=== PATIENT | female | born 1960 | race African-American/Black ===

== ENCOUNTER 2018-05-23 17:28 | Inpatient (IN) | payer MEDICAID, OTHER ==
[~2018-05-23] VITALS: Ht 175.3 cm; Wt 67.3 kg
[~2018-05-23 17:28] MED LIST: ALBUPOW26; AML5T PO; BACL10TA OR; CARI250T; ENAL20TA70; FURO40TA4 PO; HYDR-1421; POTA20TA53 OR
[2018-05-23 19:18] LABS: Albumin 2.6 g/dL (3.4-5.0); Calcium 9.6 mg/dL (8.5-10.1)
[2018-05-23 19:21] LABS: BUN/Creatinine Ratio 18.2; Bilirubin, Total 0.5 mg/dL (0.2-1.0); Total Protein 6.8 g/dL (6.4-8.2)
[2018-05-23 19:30] LABS: Eosinophils # (auto) 0 uL
[2018-05-23 19:33] LABS: Basophils # (auto) 0.1 uL; Basophils % (auto) 1.3 % (0.0-2.0); Eosinophils % (auto) 0.4 % (0.0-7.0); Hematocrit 47.8 % (36.0-46.0); Lymphocytes # (auto) 2.2 uL; Lymphocytes % (auto) 29.3 % (10.0-50.0); Mean Corpuscular Hemoglobin 34.4 pg (28.0-32.0); Mean Corpuscular Hgb Conc. 33.5 g/dL (32.0-36.0); Mean Corpuscular Volume 102.6 fL (80.0-100.0); Monocytes # (auto) 0.6 uL; Monocytes % (auto) 7.9 % (0.0-12.0); Neutrophils # (auto) 4.5 uL; Neutrophils % (auto) 61.1 % (37.0-80.0); Nucleated Red Blood Cells % 0.2 %; Platelet Count (auto) 214 10^3/uL (140-450); Red Blood Cells 4.66 10^6/uL (4.0-5.20); Red Cell Distribution Width 14.3 % (11.8-14.3); White Blood Cell 7.4 10^3/uL (4.4-10.8)
[2018-05-23 20:38] LABS: Potassium 2.8 mmol/L (3.5-5.1)
[2018-05-23] MEDS ORDERED: POTASSIUM CHL 20 Meq TABLET PO ONE (21:00)
[2018-05-24] MEDS ORDERED: SODIUM CHLORIDE 0.9% 1,000 ML IV ONE ×2 (07:13)
[2018-05-24] MEDS ORDERED: ONDANSETRON HCL 4 MG/2 ML VIAL IV ONE (07:15)
[2018-05-24] MEDS ORDERED: PIPERACILLIN-TAZOB 3.375GM 100 ML IV ONE (12:15)
[2018-05-24] MEDS ORDERED: metroNIDAZOLE 500MG/100ML 100 ML IV ONE (12:15)
[2018-05-24] MEDS ORDERED: PANTOPRAZOLE 40 MG/10 ML VIAL IV ONE (12:15)
[2018-05-24 13:13] LABS: Alcohol, Urine < 3.0 mg/dL (0-5); Amphetamine Screen, Urine NEGATIVE (NEGATIVE); Barbiturate Scree,Urine NEGATIVE (NEGATIVE); Benzodiazephine Screen, Urine NEGATIVE (NEGATIVE); Cannabinoid Screen, Urine POSITIVE (NEGATIVE); Cocaine Screen, Urine NEGATIVE (NEGATIVE); Opiate Scree,Urine POSITIVE (NEGATIVE); Phencyclidine Screen, Urine NEGATIVE (NEGATIVE)
[2018-05-24] MEDS ORDERED: ONDANSETRON HCL 4 MG/2 ML VIAL IV PRN (13:30)
[2018-05-24] MEDS ORDERED: NITROGLYCERIN 0.4 MG SL TAB SL PRN (13:30)
[2018-05-24] MEDS ORDERED: MORPHINE SULF INJ 2 MG/ML SYRINGE 1ML IV PRN (13:30)
[2018-05-24 13:46] LABS: Urine Bacteria NONE SEEN /hpf (None Seen); Urine Blood Negative /uL (Negative); Urine Mucus MODERATE (None Seen); Urine Specific Gravity 1.029 (1.001-1.035); Urine WBC 16 /hpf (0 - 5)
[2018-05-24] MEDS: METOCLOPRAMIDE HCL 5MG/ml INJ 2ml VIAL IV SCH ×2 (13:59→21:30)
[2018-05-24] MEDS: LACTULOSE 20Gm/30ML SOLN PO SCH ×3 (13:59→21:30)
[2018-05-24 14:34] LABS: Eosinophils # (auto) 0 uL; Eosinophils % (auto) 0.2 % (0.0-7.0); Neutrophils # (auto) 6.5 uL
[2018-05-24 14:35] LABS: Basophils # (auto) 0.1 uL; Basophils % (auto) 0.5 % (0.0-2.0); Hematocrit 47.4 % (36.0-46.0); Hemoglobin 15.9 g/dL (12.2-16.2); Lymphocytes # (auto) 2.5 uL; Lymphocytes % (auto) 24.6 % (10.0-50.0); Mean Corpuscular Hemoglobin 34.2 pg (28.0-32.0); Mean Corpuscular Hgb Conc. 33.5 g/dL (32.0-36.0); Mean Corpuscular Volume 102.2 fL (80.0-100.0); Monocytes % (auto) 9.5 % (0.0-12.0); Neutrophils % (auto) 65.2 % (37.0-80.0); Platelet Count (auto) 218 10^3/uL (140-450); Red Blood Cells 4.64 10^6/uL (4.0-5.20); Red Cell Distribution Width 14.5 % (11.8-14.3)
[2018-05-24 14:48] LABS: INR 0.95 (0.9-1.15); Partial Thromboplastin Time 29.5 sec (23.78-33.04); Prothrombin Time 10.2 sec (9.27-12.13)
[2018-05-24 14:58] LABS: Alanine Aminotransferase 14 U/L (13-56); Albumin 2.6 g/dL (3.4-5.0); Anion Gap 3 (5-15); Aspartate Aminotransferase 15 U/L (15-37); BUN/Creatinine Ratio 18.9; Blood Urea Nitrogen 7 mg/dL (7-18); Calcium 8.9 mg/dL (8.5-10.1); Carbon Dioxide 35 mmol/L (21-32); Chloride 101 mmol/L (98-107); GFR African American 231 mL/min; GFR Non-African American 191 mL/min; Glucose 103 mg/dL (74-106); Potassium 3.1 mmol/L (3.5-5.1); Sodium 139 mmol/L (136-145)
[2018-05-24 15:03] LABS: Alkaline Phosphatase 85 U/L (45-117); Bilirubin, Total 0.6 mg/dL (0.2-1.0); Total Protein 6.7 g/dL (6.4-8.2)
--- NOTE | 2018-05-24 15:20 | NUR ---
MS admit from ER SHIRLENE DIOP admitted to tele/MS after SBAR received. Patient oriented to Brina Horne, primary RN, unit, room, bed, and unit policies regarding patient care and visiting hours. Patient weighed by bedscale and encouraged to call if they need something. Patient is awake, alert and oriented X4. No signs or symptoms of pain, discomfort or shortness of breath. IV to left forearm, 20 gauge, patent and saline locked. All questions and concerns addressed, patient verbalized understanding. Bed locked, in lowest position, call light within reach, will continue to monitor Q 1 hour and PRN.
[2018-05-24] MEDS: MULTIPLE VITAMIN 10 ML, MAGNESIUM SULF SDV 50% 8 MEQ in D5W/SOD CHL 0.45% 1,000 ML IV SCH (16:32)
[2018-05-24 16:42] VITALS: BP 138/93
[2018-05-24] MEDS ORDERED: METH-562 PO (16:42)
[2018-05-24] MEDS ORDERED: POTA10TA51 PO (16:42)
[2018-05-24] MEDS ORDERED: METO25TA62 PO (16:42)
[2018-05-24] MEDS ORDERED: PNEUMOCOCCAL VACC POLYS 25 MCG/0.5 ML VIAL IM ONE (18:45)
[2018-05-24] MEDS ORDERED: INFLUENZA QUAD 2018-2019 0.5 ML SYRG IM ONE (18:45)
--- NOTE | 2018-05-24 19:00 | NUR ---
Opening Shift Note Assumed care of patient, awake and alert. No S/S of distress/SOB or pain. Instructed on POC and to call for assist PRN, will continue to monitor for changes Q1hr and PRN.
--- NOTE | 2018-05-24 19:09 | NUR ---
Care endorsed to ANSELMO Wang, night nurse.
[2018-05-24] MEDS: MORPHINE SULF INJ 2 MG/ML SYRINGE 1ML IV PRN ×2 (20:17→20:20)
--- NOTE | 2018-05-24 20:22 | NUR ---
AT BEDSIDE THE PATIENT REQUEST PAIN MEDICATION BUT REFUSED THE MORPHINE. INSTEAD THE PATIENT WAS GIVEN NORCO. THE MORPHINE WAS WASTED AND WITNESSED BY ROMERO BRIONES.
[2018-05-24] MEDS: HYDROcodone-ACET 7.5/325MG TAB PO PRN (20:25)
[2018-05-24] MEDS: DOCUSATE SOD 100 MG CAP PO SCH (21:30)
[2018-05-24 22:00] VITALS: BP 141/96
[2018-05-25] MEDS: LACTULOSE 20Gm/30ML SOLN PO SCH ×4 (02:00→18:00)
[2018-05-25 03:32] VITALS: BP 141/96
[2018-05-25 04:41] VITALS: BP 148/90
[2018-05-25] MEDS: METOCLOPRAMIDE HCL 5MG/ml INJ 2ml VIAL IV SCH ×3 (06:18→22:00)
--- NOTE | 2018-05-25 06:46 | NUR ---
THE PATIENT HAS A TOTAL OF 7 BOWEL MOVEMENTS THROUGHOUT THE SHIFT. THE STOOL APPEARED TO BE DARK BROWN WITH LOOSE WATERY STOOL.
--- NOTE | 2018-05-25 07:30 | NUR ---
OPENING SHIFT NOTE: Received report from [facility] RNs, Kathy. Assumed care of patient. Patient is resting quietly in bed. No signs/symptoms of pain. Bed in lowest position, rails x2 up and call light within reach. Updated board on plan of care. Will continue to monitor.
[2018-05-25 09:00] VITALS: BP 140/89
--- NOTE | 2018-05-25 09:00 | NUR ---
COMMODE: 2 person assist to get patient on commode. Patient had a loose bowel movement. Patient requesting to hold next dose of lactulose.
[2018-05-25] MEDS: DOCUSATE SOD 100 MG CAP PO SCH ×2 (10:00→22:00)
--- NOTE | 2018-05-25 11:35 | NUR ---
BP: BP 165/118. Patient with home medications that haven't been continued. Paged Dr Little and left message regarding continuation of home medications.
[2018-05-25] MEDS ORDERED: POTASSIUM CHLORIDE 40 MEQ, LIDOCAINE 1% (LOCAL ANESTH.) 4 ML in SODIUM CHL 0.9% 100 ML IV ONE (12:30)
--- NOTE | 2018-05-25 12:31 | NUR ---
MD: Dr Little to see patient at bedside. Orders received.
[2018-05-25] MEDS ORDERED: METOPROLOL SUCCINATE XL 50 MG TAB PO ONE (12:45)
[2018-05-25 13:00] VITALS: BP 163/115
[2018-05-25] MEDS: FUROSEMIDE 40 MG TAB PO SCH (13:00)
[2018-05-25] MEDS ORDERED: POTASSIUM CHLORIDE 8 MEQ TAB PO SCH (13:00)
--- NOTE | 2018-05-25 13:06 | NUR ---
GI CONSULT: Dr Mejia is out of town until 05/30/18. Dr Dm Ignacio is covering. Consult placed to Dr Dm Ignacio.
--- NOTE | 2018-05-25 13:30 | NUR ---
MEDICATIONS: Patient refusing to take metoprolol. Requesting for pain medication. RN reinforced Dr Little's request for patient to eat and hold off on pain medications due to hepatic function and constipation.
[2018-05-25] MEDS: MULTIPLE VITAMIN 10 ML, MAGNESIUM SULF SDV 50% 8 MEQ in D5W/SOD CHL 0.45% 1,000 ML IV SCH (13:37)
--- NOTE | 2018-05-25 14:00 | NUR ---
IV: Call from Urvashi SWANSON. IV to left AC leaking. Held banana bag and postassium rider. Will attempt a new IV.
[2018-05-25] MEDS: ALBUTEROL SULF 2.5 MG/0.5ML(0.5%) NEB SOLN NEB PRN ×2 (14:26→22:17)
--- NOTE | 2018-05-25 14:30 | NUR ---
Patient moved to room 277B closer to nurses station per Dr Little's request due to likely garcía of patient developing DTs from alcohol withdrawals.
--- NOTE | 2018-05-25 16:30 | NUR ---
IV: Attempted to start new IV to left forearm with no success. Patient refusing to allow RN to try again. RN to get another nurse to attempt.
[2018-05-25 17:00] VITALS: BP 186/106
--- NOTE | 2018-05-25 17:34 | NUR ---
IV: JASWINDER Barrow attempted x2 to start IV. Patient complaining about where nurses are trying to place IV. After 2nd IV blew, patient asked for nurse to give her sometime to rest before additional attempt.
--- NOTE | 2018-05-25 19:03 | NUR ---
CLOSING SHIFT NOTE: Report given to NOC RNs, Kathy. Endorsed care of patient. Patient still with no IV access.
--- NOTE | 2018-05-25 19:30 | NUR ---
Unsuccessful attempt for IV insertion on left FA. Patient refused to allow another attempt. Will inform charge nurse.
--- NOTE | 2018-05-25 19:35 | NUR ---
Opening Shift Note Assumed care of patient, awake and alert. The patient has family at the bedside. No S/S of distress/SOB or pain. Instructed on POC and to call for assist PRN, will continue to monitor for changes Q1hr and PRN.
[2018-05-25 21:52] VITALS: BP 147/84
--- NOTE | 2018-05-25 22:00 | NUR ---
BROUGHT IN CHARGE NURSE TO ATTEMPT IV. BUT PATIENT BECAME AGGRESSIVE USING INAPPROPRIATE LANGUAGE AND REFUSED TO HAVE THE IV. WILL RETRY AT A LATER TIME.
[2018-05-26 02:00] VITALS: BP 147/106
--- NOTE | 2018-05-26 03:45 | NUR ---
ATTEMPTED TO PLACE ANOTHER IV IN THE PATIENT'S LEFT ARM. ATTEMPT WAS UNSUCCESSFUL. PATIENT REFUSED ANOTHER ATTEMPT FOR IV PLACEMENT. Addendum: 05/26/18 at 0625 by Jude Nguyễn RN AFTER THE ATTEMPT, THE PATIENT WAS ASKED IF THE CHARGE NURSE COULD ATTEMPT AN IV AND THE PATIENT REFUSED. THE PATIENT WAS EDUCATED ON THE RISK OF NOT HAVING AN IV PLACED WHEN IV FLUIDS ARE ORDERED.
[2018-05-26] MEDS: ACETAMINOPHEN 500 MG TAB PO PRN ×2 (04:13→06:39)
[2018-05-26 05:53] LABS: Basophils # (auto) 0 uL; Eosinophils # (auto) 0.1 uL; Hematocrit 43.1 % (36.0-46.0); Hemoglobin 14.5 g/dL (12.2-16.2); Lymphocytes # (auto) 2.4 uL; Nucleated Red Blood Cells % 0.3 %; Red Blood Cells 4.22 10^6/uL (4.0-5.20); Red Cell Distribution Width 14.4 % (11.8-14.3); White Blood Cell 8.6 10^3/uL (4.4-10.8)
[2018-05-26 05:55] LABS: Basophils % (auto) 0.2 % (0.0-2.0); Eosinophils % (auto) 1.5 % (0.0-7.0); Lymphocytes % (auto) 28.4 % (10.0-50.0); Mean Corpuscular Hemoglobin 34.2 pg (28.0-32.0); Mean Corpuscular Hgb Conc. 33.6 g/dL (32.0-36.0); Monocytes % (auto) 12.1 % (0.0-12.0); Neutrophils % (auto) 57.8 % (37.0-80.0); Platelet Count (auto) 180 10^3/uL (140-450)
[2018-05-26] MEDS: LACTULOSE 20Gm/30ML SOLN PO SCH ×4 (06:00→17:48)
[2018-05-26] MEDS: METOCLOPRAMIDE HCL 5MG/ml INJ 2ml VIAL IV SCH ×3 (06:00→22:00)
[2018-05-26 06:09] LABS: Albumin 2.3 g/dL (3.4-5.0); Calcium 9.3 mg/dL (8.5-10.1)
[2018-05-26 06:12] LABS: BUN/Creatinine Ratio 5.1
[2018-05-26 06:14] LABS: Bilirubin, Total 0.5 mg/dL (0.2-1.0); Total Protein 6.2 g/dL (6.4-8.2)
--- NOTE | 2018-05-26 06:25 | NUR ---
THE PATIENT WAS ASKED IF SHE WANTED HER FLU AND PNEUMONIA VACCINATION AND THE PATIENT REFUSED. SHE STATED THAT SHE "COULDN'T THINK RIGHT NOW AND DID NOT WANT THE VACCINATIONS".
[2018-05-26 06:34] LABS: Potassium 2.7 mmol/L (3.5-5.1)
--- NOTE | 2018-05-26 06:35 | NUR ---
CRITICAL LAB - K+ 2.7 HOSPITALIST HAS BEEN PAGED.
[2018-05-26] MEDS ORDERED: POTASSIUM CHL 20 Meq TABLET PO ONE (07:30)
--- NOTE | 2018-05-26 07:30 | NUR ---
Opening Shift Note Assumed care of patient, awake and alert. No S/S of distress/SOB. Pain reported at 8/10. Pain management options discussed with the patient. Instructed on POC and to call for assist PRN, will continue to monitor for changes Q1hr and PRN.
[2018-05-26 08:00] VITALS: BP 151/102
--- NOTE | 2018-05-26 08:30 | NUR ---
Respiratory note: ROUTINE PRN CHECK. HR 86, RR 16, POX 96% ON 2L/M NC. NO SOB OR DISTRESS NOTED. PT WAS NOTIFY TO HAVE RN PAGE RT FOR MN TX.
[2018-05-26 09:05] VITALS: BP 151/102
[2018-05-26] MEDS ORDERED: METOPROLOL SUCCINATE XL 50 MG TAB PO SCH (10:00)
[2018-05-26] MEDS ORDERED: LISINOPRIL 20 MG TAB PO ONE (10:15)
[2018-05-26] MEDS: DOCUSATE SOD 100 MG CAP PO SCH ×2 (11:06→22:15)
[2018-05-26] MEDS: amLODIPine BESYLATE 5 MG TAB PO SCH (11:07)
[2018-05-26] MEDS: MULTIPLE VITAMIN 10 ML, MAGNESIUM SULF SDV 50% 8 MEQ in D5W/SOD CHL 0.45% 1,000 ML IV SCH (11:53)
[2018-05-26 12:09] VITALS: BP 152/97
[2018-05-26] MEDS: FUROSEMIDE 40 MG TAB PO SCH (13:45)
[2018-05-26 16:46] VITALS: BP 156/105
--- NOTE | 2018-05-26 20:00 | NUR ---
ASSISTED PATIENT FOR BEDSIDE COMMODE WITH CELINA FRIEDMAN. PATIENT TOLERATED WELL. NO S/S OF DISTRESS NOTED. C/O PAIN @ 12/18. WILL COME BACK FOR PAIN MEDICATION LATER. CLEANED PATIENT, PARTIAL LINEN CHANGED. POC INSTRUCTED AND ENCOURAGED PATIENT TO CALL FOR CREPE BOX TENDER IF NEEDED. BED IN LOWEST POSITION WITH SIDE RAILS UP X 2. CALL CONNOR WITHIN REACH. ALARM ON. CONTINUE TO MONITOR FOR CHANGES Q1HR AND PRN.
[2018-05-26] MEDS: HYDROcodone-ACET 7.5/325MG TAB PO PRN (20:28)
--- NOTE | 2018-05-26 20:28 | NUR ---
MEDICATION GIVEN FOR PAIN @ 12/18 ORDERED. CONTINUE TO MONITOR.
[2018-05-26 22:00] VITALS: BP 135/82
[2018-05-26] MEDS: PROPRANOLOL HCL 20 MG TAB PO SCH (22:15)
[2018-05-26] MEDS: POTASSIUM CHL 20 Meq TABLET PO SCH (22:15)
--- NOTE | 2018-05-26 22:16 | NUR ---
SCHEDULED ORAL MEDICATION GIVEN ORDERED. PATIENT SWALLOWED WELL. CONTINUE CARE.
--- NOTE | 2018-05-26 22:16 | NUR ---
REFUSAL IV INSERTION PATIENT REFUSED TO HAVE IV ACCESS, SHE SAID SHE'S BEEN POKING TO MANY TIMES, SHE DID NOT WANT IT FOR NOW. INSTRUCTED PATIENT TO HAVE IV ACCESS FOR HER IV MEDICATION REGLAN FOR HER STOMACH, PATIENT STILL REFUSING. PER REPORT FROM DAY SHIFT RNMD PHAM AWARE OF THIS. WILL TRY IT LATER. CONTINUE TO MONITOR.
--- NOTE | 2018-05-27 02:19 | NUR ---
PATIENT SLEEPING. NO S/S OF DISTRESS NOTED. CONTINUE CARE.
[2018-05-27 05:00] VITALS: BP 150/91
[2018-05-27] MEDS: METOCLOPRAMIDE HCL 5MG/ml INJ 2ml VIAL IV SCH ×3 (06:00→21:54)
[2018-05-27] MEDS: LACTULOSE 20Gm/30ML SOLN PO SCH ×4 (06:00→17:50)
--- NOTE | 2018-05-27 06:20 | NUR ---
PATIENT REFUSED LACTULOSE AND REFUSED AGAIN TO HAVE AN IV INSERTION. WILL PASS IT TO DAY SHIFT RN. CONTINUE TO MONITOR.
[2018-05-27 06:23] LABS: Basophils # (auto) 0 uL; Lymphocytes # (auto) 3.4 uL; Mean Corpuscular Hemoglobin 34.1 pg (28.0-32.0); Monocytes # (auto) 1.2 uL; Monocytes % (auto) 12.7 % (0.0-12.0); Red Cell Distribution Width 14.6 % (11.8-14.3); White Blood Cell 9.2 10^3/uL (4.4-10.8)
[2018-05-27 06:26] LABS: Basophils % (auto) 0.3 % (0.0-2.0); Eosinophils # (auto) 0.1 uL; Eosinophils % (auto) 1.5 % (0.0-7.0); Hematocrit 45.2 % (36.0-46.0); Lymphocytes % (auto) 37.6 % (10.0-50.0); Mean Corpuscular Hgb Conc. 33.3 g/dL (32.0-36.0); Mean Corpuscular Volume 102.4 fL (80.0-100.0); Neutrophils # (auto) 4.4 uL; Neutrophils % (auto) 47.9 % (37.0-80.0); Nucleated Red Blood Cells % 0.1 %; Platelet Count (auto) 215 10^3/uL (140-450); Red Blood Cells 4.41 10^6/uL (4.0-5.20)
[2018-05-27 06:34] LABS: Potassium 3.7 mmol/L (3.5-5.1)
[2018-05-27 06:44] LABS: Albumin 2.3 g/dL (3.4-5.0); BUN/Creatinine Ratio 5.3; Bilirubin, Total 0.3 mg/dL (0.2-1.0); Calcium 9.2 mg/dL (8.5-10.1); Total Protein 6.1 g/dL (6.4-8.2)
--- NOTE | 2018-05-27 07:12 | NUR ---
Respiratory note: PRN MN TX NOT INDICATED OR WANTED BY PT AT THIS TIME. PT STATES BREATHING IS GOOD. BS CLEAR, HR 93, RR 12, SPO2 99% ON RA. PT INFORMED TO HIT CALL BUTTON IF FEELING SOB OR WHEEZING.
[2018-05-27 08:30] VITALS: BP 149/99
[2018-05-27] MEDS: PROPRANOLOL HCL 20 MG TAB PO SCH ×2 (09:30→21:55)
[2018-05-27] MEDS: amLODIPine BESYLATE 5 MG TAB PO SCH (09:31)
[2018-05-27] MEDS: HYDROcodone-ACET 7.5/325MG TAB PO PRN ×2 (09:31→22:30)
[2018-05-27] MEDS: POTASSIUM CHL 20 Meq TABLET PO SCH ×2 (09:32→21:55)
[2018-05-27] MEDS: LISINOPRIL 20 MG TAB PO SCH (09:32)
[2018-05-27] MEDS: DOCUSATE SOD 100 MG CAP PO SCH ×2 (09:33→21:54)
[2018-05-27] MEDS: MULTIPLE VITAMIN 10 ML, MAGNESIUM SULF SDV 50% 8 MEQ in D5W/SOD CHL 0.45% 1,000 ML IV SCH (11:17)
[2018-05-27 11:46] VITALS: BP 132/91
--- NOTE | 2018-05-27 12:32 | NUR ---
it was noted that several calls have been made to dr Mejia/CHERRY for consults since admission, per dr Lennon, call dr Dewitt for consult.
[2018-05-27] MEDS: FUROSEMIDE 40 MG TAB PO SCH (14:04)
[2018-05-27 16:33] VITALS: BP 140/84
--- NOTE | 2018-05-27 18:41 | NUR ---
Respiratory note: NO PRN TX GIVEN AT THIS TIME, NOT INDICATED. PT DENIES SOB. SPO2 93% ON RA, HR 92, RR 20. NO DISTRESS NOTED.
[2018-05-27] MEDS ORDERED: GOLYTELY 4L KIT PO ONE (19:15)
--- NOTE | 2018-05-27 20:00 | NUR ---
RECEIVED PATIENT FROM DAY SHIFT RN. PATIENT RESTING IN BED. NO S/S OF DISTRESS NOTED. INSTRUCTED PATIENT TO DRINK GOLYTELY AND NPO AFTER MIDNIGHT FOR PROCEDURE TOMORROW. PATIENT STATED SHE WILL TRY LATER. POC INSTRUCTED AND ENCOURAGED PATIENT TO CALL FOR MANAGER DIABETES IF NEEDED. BED IN LOWEST POSITION WITH SIDE RAILS UP X 2. CALL CONNOR WITHIN REACH. ALARM ON. CONTINUE TO MONITOR FOR CHANGES Q1H AND PRN.
[2018-05-27 22:00] VITALS: BP 139/93
--- NOTE | 2018-05-27 22:10 | NUR ---
ENCOURAGED PATIENT TO DRINK GOLYTELY, AND TOOK ORAL MEDIATIONS WITH GOLYTELY ABOUT 250ML. PATIENT NEEDED A BREAK FOR NOW. WILL COME BACK AND CHECK HER LATER. CONTINUE TO MONITOR.
--- NOTE | 2018-05-27 22:26 | NUR ---
IV REMOVAL PATIENT YELLING AND STATED PAIN ON HER IV SITE, PATIENT IS RUNNING BANANA BAG, IV SITE FLUSHING WELL, NO S/S OF INFECTION AND INFILTRATION NOTED. PATIENT INSISTED TO REMOVE IV ACCESS. WILL TRY TO INSERT A NEW ONE LATER. IV DC'd with clean sterile technique, catheter fully intact. Pressure dressing applied to site. Patient tolerated well. CHARGE NURSE WESLY AWARE. CONTINUE TO MONITOR.
--- NOTE | 2018-05-27 22:30 | NUR ---
PAIN MEDICATION GIVEN FOR PAIN @ 12/18. CONTINUE TO MONITOR.
[2018-05-28 00:11] VITALS: BP 139/93
--- NOTE | 2018-05-28 00:28 | NUR ---
PATIENT ONLY DRANK A LITTLE GOLYTELY AFTER LAST TRYING. REMINDED PATIENT NPO FROM NOW ON, AND RESUME GOLYTELY IN THE MORNING 0600AM ORDERED. PATIENT VERBALIZED UNDERSTANDING. CONTINUE TO MONITOR.
[2018-05-28] MEDS: LACTULOSE 20Gm/30ML SOLN PO SCH ×4 (00:30→16:47)
--- NOTE | 2018-05-28 02:00 | NUR ---
PATIENT URINATED, NO BM. PARTIAL LINEN CHANGED. PATIENT TOLERATED WELL. CONTINUE CARE.
--- NOTE | 2018-05-28 03:40 | NUR ---
ASSISTED PATIENT TO BEDSIDE COMMODE, PATIENT TOLERATED WELL. NO BM STILL. CONTINUE TO MONITOR.
[2018-05-28 05:00] VITALS: BP 137/94
[2018-05-28 05:22] LABS: Basophils # (auto) 0 uL; Eosinophils # (auto) 0.3 uL; Monocytes # (auto) 1.4 uL; Nucleated Red Blood Cells % 0.1 %; Platelet Count (auto) 215 10^3/uL (140-450); Red Cell Distribution Width 14.6 % (11.8-14.3)
[2018-05-28 05:25] LABS: Basophils % (auto) 0.4 % (0.0-2.0); Eosinophils % (auto) 2.5 % (0.0-7.0); Hematocrit 46.4 % (36.0-46.0); Hemoglobin 15.1 g/dL (12.2-16.2); Lymphocytes # (auto) 4.4 uL; Lymphocytes % (auto) 38.7 % (10.0-50.0); Mean Corpuscular Hemoglobin 33.6 pg (28.0-32.0); Mean Corpuscular Hgb Conc. 32.6 g/dL (32.0-36.0); Neutrophils # (auto) 5.3 uL; Neutrophils % (auto) 46.4 % (37.0-80.0); White Blood Cell 11.4 10^3/uL (4.4-10.8)
[2018-05-28] MEDS: METOCLOPRAMIDE HCL 5MG/ml INJ 2ml VIAL IV SCH ×3 (05:40→21:19)
--- NOTE | 2018-05-28 05:41 | NUR ---
WOKE PATIENT UP AND ENCOURAGED PATIENT TO DRINK CITRATE AND GOLYTELY. PATIENT STATED "I AM NOT GONNA FINISH ALL OF THIS." INSTRUCTED PATIENT THE IMPORTANCE OF THOSE MEDS FOR HER BOWEL PREPARING FOR PROCEDURE. PATIENT SAID WILL TRY LATER. CONTINUE CARE.
[2018-05-28 05:43] LABS: Potassium 4.4 mmol/L (3.5-5.1)
[2018-05-28 05:49] LABS: Albumin 2.3 g/dL (3.4-5.0); BUN/Creatinine Ratio 13.2; Bilirubin, Total 0.2 mg/dL (0.2-1.0); Total Protein 6.2 g/dL (6.4-8.2)
--- NOTE | 2018-05-28 05:55 | NUR ---
ASSISTED PATIENT TO BEDSIDE COMMODE, PATIENT TOLERATED WELL. STILL NO BM. PATIENT DID NOT DRINK ANY CITRATE OR GOLYTELY. INSTRUCTED PATIENT AGAIN THE NEED OF TAKING THOSE MEDICATIONS. PATIENT STATED " I CAN'T DO WHAT I CAN'T DO". TOLD PATIENT IF SHE DOES NOT DRINK ANYTHING, WILL CALL MD IN THE MORNING TO SEE WHAT MD WILL DO. PROBABLY, MD WILL CANCEL THE PROCEDURE BECAUSE SHE'S NOT EVEN TRYING. PATIENT THEN CLENCHED HER TEETH AND RESPONDED AGGRESSIVELY "OKAY". WILL COME BACK AND CHECK HER LATER.
[2018-05-28] MEDS ORDERED: MAGNESIUM CITRATE SOLUTION 300 ML BTL PO ONE (06:00)
[2018-05-28] MEDS ORDERED: GOLYTELY 4L KIT PO ONE (06:00)
--- NOTE | 2018-05-28 06:48 | NUR ---
CHECKED PATIENT AGAIN, ALL MEDICATIONS JUST SITTING ON THE TABLE, PATIENT SLEEPING AND DID NOT DRINK ANYTHING. TRY TO WAKE PATIENT UP TO TAKE MEDS, PATIENT DID NOT WANT TO ANSWER TO PRIMARY RN. WILL CALL MD TO REPORT IT. CONTINUE CARE.
--- NOTE | 2018-05-28 06:52 | NUR ---
MD Called/paged Dr. KIRKLAND called re: PATIENT REFUSED TO TAKE MEDICATION FOR BOWEL PREPARATION. THERE'S NO BM FOR THE WHOLE SHIFT. WAITING FOR MD TO CALL BACK FOR ANY CHANGES ON THE PLAN. Continue care.
--- NOTE | 2018-05-28 08:00 | NUR ---
Opening Shift Note Assumed care of patient, awake, alert and oriented X4. No S/S of distress/SOB, complains of generalized abdominal pain, 8/10. IV to right forearm, 22 gauge, patent and saline locked. Patient educated on importance of drinking bowel prep for possible Colonoscopy today, verbalized understanding. Instructed on POC and to call for assist PRN, verbalized understanding. Bed locked, in lowest position, call light within reach, will continue to monitor for changes Q1hr and PRN.
[2018-05-28] MEDS: POTASSIUM CHL 20 Meq TABLET PO SCH ×2 (10:00→21:17)
[2018-05-28] MEDS: PROPRANOLOL HCL 20 MG TAB PO SCH ×2 (10:05→21:18)
[2018-05-28] MEDS: DOCUSATE SOD 100 MG CAP PO SCH ×2 (10:05→21:18)
[2018-05-28] MEDS: LISINOPRIL 20 MG TAB PO SCH (10:06)
[2018-05-28] MEDS: amLODIPine BESYLATE 5 MG TAB PO SCH (10:06)
--- NOTE | 2018-05-28 10:50 | NUR ---
ROUNDS Dr Richard Little at bedside for rounds. Notified patient stalling on drinking bowel prep. Educated on importance of drinking prep, verbalized understanding. Plan of care discussed with patient, verbalized understanding.
--- NOTE | 2018-05-28 10:52 | NUR ---
GI Call received from Dr. Angeline Ignacio, informed patient stalling on drinking bowel prep and that patient has not had a bowel movement since yesterday. New orders for Gastrografin small bowel follow through and that Colonoscopy will be delayed until tomorrow pending patient drinking bowel prep and stools are liquid and clear. Plan discussed with patient, verbalized understanding.
[2018-05-28] MEDS: MULTIPLE VITAMIN 10 ML, MAGNESIUM SULF SDV 50% 8 MEQ in D5W/SOD CHL 0.45% 1,000 ML IV SCH (12:02)
[2018-05-28] MEDS ORDERED: GASTROGRAFIN 120 ML SOL ONE ×3 (12:40→16:12)
--- NOTE | 2018-05-28 13:04 | NUR ---
NUTRITION ASSESSMENT NOTES Please refer to link notes of nutrition screen form filed under the intervention section of the plan of care for further details. Est. Needs: 1600 kcal to 1950 kcal (25-30 kcal/kgBW), 65 gms to 84 gms pro (1.0-1.3 gms/kgBW d/t severe hypoalbuminemia). Will continue to monitor pertinent labs and reassess nutrient need prn Thank you. Addendum: 05/28/18 at [address] Amended: Links added.
[2018-05-28] MEDS: FUROSEMIDE 40 MG TAB PO SCH (14:51)
--- NOTE | 2018-05-28 16:20 | NUR ---
PT NOT IN ROOM AT TIME OF ASSESSMENT FOR MEDNEB, PT AWARE OF MEDNEB PRN TX. WILL CONTINUE TO MONITOR. Signed: 05/28/18 at 1638 by SEBASTIAN PARKER SRT <Co-Signature Required> Co-Signed: 05/28/18 at 1638 by RT BRAYAN RT
--- NOTE | 2018-05-28 17:52 | NUR ---
GI Dr Dm Ignacio at bedside for GI follow up, new orders received and followed through. Patient updated on plan of care, verbalized understanding.
--- NOTE | 2018-05-28 19:10 | NUR ---
Care endorsed to ANSELMO Beckham, night nurse.
[2018-05-28] MEDS: HYDROcodone-ACET 7.5/325MG TAB PO PRN (21:17)
[2018-05-28 22:00] VITALS: BP 161/110
--- NOTE | 2018-05-29 | NUR ---
PATIENT REFUSED LACTULOSE, ENCOURAGED PATIENT DRINK THE REST OF THE GOLYTELY AND PATIENT STATES SHE REFUSES TO DRINK LACTULOSE GOLYTELY BECAUSE SHE WANTS TO SLEEP AND NOT BE ON THE TOILET ALL NIGHT.
--- NOTE | 2018-05-29 00:30 | NUR ---
PT CHECKED FOR PRN TX. PT IS SLEEPING WITH NO ACUTE DISTRESS. TX NOT INDICATED AT THIS TIME. HR 100 RR 20 POX 97% ON ROOM AIR. WILL CONTINUE TO MONITOR.
[2018-05-29] MEDS: chlordiazePOXIDE HCL 5 MG CAP PO PRN ×2 (01:34→21:29)
[2018-05-29 04:47] VITALS: BP 136/83
[2018-05-29] MEDS: HYDROcodone-ACET 7.5/325MG TAB PO PRN ×2 (05:22→21:29)
[2018-05-29] MEDS: LACTULOSE 20Gm/30ML SOLN PO SCH ×6 (05:22→21:29)
[2018-05-29] MEDS: METOCLOPRAMIDE HCL 5MG/ml INJ 2ml VIAL IV SCH ×3 (05:22→21:29)
--- NOTE | 2018-05-29 05:55 | NUR ---
PATIENT REFUSED TO TAKE LACTULOSE AND MAG CITRATE PRESCRIBED PATIENT STATES SHE WILL DRINK THE MAG CITRATE LATER THIS AM SHE STATES SHE WANTS TO SLEEP MORE AND NOT BE ON THE TOILET ALL NIGHT.
[2018-05-29] MEDS ORDERED: MAGNESIUM CITRATE SOLUTION 300 ML BTL PO ONE (06:00)
[2018-05-29 06:49] LABS: Basophils # (auto) 0 uL; Eosinophils # (auto) 0.2 uL; White Blood Cell 9.8 10^3/uL (4.4-10.8)
[2018-05-29 06:51] LABS: Basophils % (auto) 0.4 % (0.0-2.0); Eosinophils % (auto) 1.9 % (0.0-7.0); Hematocrit 44.1 % (36.0-46.0); Hemoglobin 14.6 g/dL (12.2-16.2); Lymphocytes # (auto) 3.5 uL; Lymphocytes % (auto) 35.3 % (10.0-50.0); Mean Corpuscular Hgb Conc. 33.1 g/dL (32.0-36.0); Mean Corpuscular Volume 102.6 fL (80.0-100.0); Monocytes % (auto) 10.4 % (0.0-12.0); Neutrophils # (auto) 5.1 uL; Nucleated Red Blood Cells % 0.2 %; Platelet Count (auto) 228 10^3/uL (140-450); Red Cell Distribution Width 14.7 % (11.8-14.3)
[2018-05-29 06:59] LABS: Calcium 8.5 mg/dL (8.5-10.1)
[2018-05-29 07:04] LABS: Albumin 2.2 g/dL (3.4-5.0); Bilirubin, Total 0.2 mg/dL (0.2-1.0); Total Protein 5.6 g/dL (6.4-8.2)
--- NOTE | 2018-05-29 08:00 | NUR ---
Opening Shift Note Assumed care of patient, awake, alert and oriented X4. No S/S of distress/SOB, complains of generalized abdominal pain, 8/10. IV to left forearm, 22 gauge, patent and saline locked. Instructed on POC and to call for assist PRN, verbalized understanding. Patient educated on importance of drinking bowel prep, verbalized understanding. Bed locked, in lowest position, call light within reach, will continue to monitor for changes Q1hr and PRN.
[2018-05-29 09:00] VITALS: BP 148/99
[2018-05-29] MEDS: DOCUSATE SOD 100 MG CAP PO SCH ×2 (09:49→21:27)
[2018-05-29] MEDS: LEVOFLOXACIN 500MG 100 ML IV SCH (09:49)
[2018-05-29] MEDS: amLODIPine BESYLATE 5 MG TAB PO SCH (09:50)
[2018-05-29] MEDS: PROPRANOLOL HCL 20 MG TAB PO SCH ×2 (09:50→21:28)
[2018-05-29] MEDS: POTASSIUM CHL 20 Meq TABLET PO SCH ×2 (09:51→21:27)
[2018-05-29] MEDS: LISINOPRIL 20 MG TAB PO SCH (09:51)
--- NOTE | 2018-05-29 09:58 | NUR ---
ROUNDS Dr Richard Little at bedside for rounds, new orders received and followed through. Patient updated on plan of care, verbalized understanding.
[2018-05-29] MEDS: MULTIPLE VITAMIN 10 ML, MAGNESIUM SULF SDV 50% 8 MEQ in D5W/SOD CHL 0.45% 1,000 ML IV SCH (12:40)
[2018-05-29] MEDS: FUROSEMIDE 40 MG TAB PO SCH (12:52)
[2018-05-29] MEDS ORDERED: diphenhdrAMINE HCL 50 MG/1 ML VL ONE (13:47)
[2018-05-29] MEDS ORDERED: SODIUM CHLORIDE LOCK 10 ML ONE (13:47)
[2018-05-29] MEDS: GABAPENTIN 100 MG CAP PO SCH ×2 (14:00→21:28)
[2018-05-29] MEDS: ALBUTEROL SULF 2.5 MG/0.5ML(0.5%) NEB SOLN NEB PRN (14:22)
--- NOTE | 2018-05-29 14:22 | NUR ---
Respiratory note: ASSESSED PATIENT FOR PRN TX. PATIENT IS AWAKE AND ALERT AND STATED SHE WOULD LIKE ONE. PATIENT BREATH SOUNDS ARE SLIGHT EXPIRATORY WHEEZE, RR 18, SP02 95% ON ROOM AIR. PATIENT IS AWARE TO HAVE RT PAGED FOR BREATHING TX. WILL CONTINUE TO MONITOR PATIENT.
--- NOTE | 2018-05-29 15:05 | NUR ---
Patient taken to OR via bed for Colonoscopy, no distress noted upon departure.
--- NOTE | 2018-05-29 15:12 | NUR ---
PT Patient refused to be OOB and stated she will have a procedure done to her during PT visit. ANSELMO Gonsalves confirmed procedure with pt. Addendum: 05/29/18 at 1514 by ZAKI MACIEL PTT Amended: Links added.
[2018-05-29] MEDS: MIDAZOLAM HCL 5 MG/ML-1ML VIAL ONE ×3 (16:46→17:05)
[2018-05-29] MEDS: fentaNYL CITRATE 100 MCG/2 ML VL ONE ×3 (16:46→16:56)
--- NOTE | 2018-05-29 19:20 | NUR ---
Care endorsed to ANSELMO Beckham, night nurse.
--- NOTE | 2018-05-29 21:42 | NUR ---
Respiratory note: PT ASSESSED FOR PRN MED NEB TX. PT ALERT AND AWAKE. PT DENIES ANY SOB AT THIS TIME. SPO2 99% ON R/A, HR 91, RR 16. B/S ARE CLEAR. PT INFORMED TO HAVE RT PAGED IF NEEDED
[2018-05-29 21:59] VITALS: BP 137/99
[2018-05-30 04:55] VITALS: BP 144/96
[2018-05-30] MEDS: METOCLOPRAMIDE HCL 5MG/ml INJ 2ml VIAL IV SCH (04:55)
[2018-05-30] MEDS: LACTULOSE 20Gm/30ML SOLN PO SCH ×2 (04:55→12:00)
[2018-05-30] MEDS: GABAPENTIN 100 MG CAP PO SCH (05:00)
[2018-05-30] MEDS: HYDROcodone-ACET 7.5/325MG TAB PO PRN ×2 (05:02→14:08)
[2018-05-30 05:55] LABS: Basophils # (auto) 0 uL; Eosinophils # (auto) 0.2 uL; Hemoglobin 13.1 g/dL (12.2-16.2); Lymphocytes # (auto) 3.2 uL; Monocytes # (auto) 0.7 uL; Monocytes % (auto) 8.9 % (0.0-12.0)
[2018-05-30 05:59] LABS: Basophils % (auto) 0.5 % (0.0-2.0); Eosinophils % (auto) 2.2 % (0.0-7.0); Hematocrit 41.8 % (36.0-46.0); Lymphocytes % (auto) 37.9 % (10.0-50.0); Mean Corpuscular Hgb Conc. 31.4 g/dL (32.0-36.0); Mean Corpuscular Volume 108.1 fL (80.0-100.0); Neutrophils # (auto) 4.2 uL; Neutrophils % (auto) 50.5 % (37.0-80.0); Nucleated Red Blood Cells % 0.2 %; Platelet Count (auto) 229 10^3/uL (140-450); Red Blood Cells 3.87 10^6/uL (4.0-5.20); Red Cell Distribution Width 15.3 % (11.8-14.3); White Blood Cell 8.3 10^3/uL (4.4-10.8)
[2018-05-30 06:05] LABS: Potassium 4.3 mmol/L (3.5-5.1)
[2018-05-30 06:11] LABS: Albumin 1.9 g/dL (3.4-5.0); BUN/Creatinine Ratio 4.5; Bilirubin, Total 0.2 mg/dL (0.2-1.0); Calcium 7.7 mg/dL (8.5-10.1); Total Protein 5.2 g/dL (6.4-8.2)
--- NOTE | 2018-05-30 08:00 | NUR ---
Opening Shift Note Assumed care of patient, awake, alert and oriented X4. No S/S of distress/SOB or pain. IV to left forearm, 22 gauge, patent and saline locked. Instructed on POC and to call for assist PRN, verbalized understanding. Bed locked, in lowest position, call light within reach, will continue to monitor for changes Q1hr and PRN.
[2018-05-30 09:00] VITALS: BP 128/73
[2018-05-30] MEDS: LEVOFLOXACIN 500MG 100 ML IV SCH (09:44)
[2018-05-30] MEDS: DOCUSATE SOD 100 MG CAP PO SCH (09:45)
[2018-05-30] MEDS: POTASSIUM CHL 20 Meq TABLET PO SCH (09:45)
[2018-05-30] MEDS: PROPRANOLOL HCL 20 MG TAB PO SCH (09:45)
[2018-05-30] MEDS: amLODIPine BESYLATE 5 MG TAB PO SCH (09:46)
[2018-05-30] MEDS: LISINOPRIL 20 MG TAB PO SCH (09:46)
--- NOTE | 2018-05-30 10:10 | NUR ---
Respiratory note: PT ASSESSED FOR PRN MEDNEB TX. NO TX INDICATED AT THIS TIME. SPO2 98% ON RA HR 82 RR 16 B/S CLEAR. PT AWARE TO HAVE RT PAGED IF THEY BECOME SOB.
--- NOTE | 2018-05-30 11:20 | NUR ---
PT 1st AM visit, patient refused and stated she is mad because her phone probation officer is missing. 2nd AM visit, patient continue to refuse PT or OOB activities for the same reason. Addendum: 05/30/18 at 1122 by ZAKI MACIEL PTT Amended: Links added.
[2018-05-30] MEDS: MULTIPLE VITAMIN 10 ML, MAGNESIUM SULF SDV 50% 8 MEQ in D5W/SOD CHL 0.45% 1,000 ML IV SCH (12:00)
--- NOTE | 2018-05-30 14:08 | NUR ---
Discharge instructions given as ordered. Encourage to follow up with PMD as instructed. All questions and concerns addressed. Patient verbalized understanding. Medication reconciliation form completed and copy given to patient. IV removed with catheter intact, pressure dressing applied. Patient awaiting transportation.
--- NOTE | 2018-05-30 14:54 | NUR ---
Patient taken to vehicle via wheelchair with all personal belongings, accompanied by staff and family member. No distress noted at time of departure.
== END 2018-05-30 14:30 | disposition home or self-care (01) | DRG 425 ==
LOC: ER 17:31 → OVERFLOW 05-24 13:24 → WEST WING 05-24 14:36
PROVIDERS: ADMIT Nurse Practitioner Acute Care; ATTEND Internal Medicine
PROC: 0DBN8ZX Excision of Sigmoid Colon, Via Natural or Artificial Opening Endoscopic, Diagnostic (ICD-10-PCS; principal; 2018-05-29 16:40)
DX: E87.6 Hypokalemia (principal); E44.0 Moderate protein-calorie malnutrition; G62.1 Alcoholic polyneuropathy; F11.20 Opioid dependence, uncomplicated; K52.9 Noninfective gastroenteritis and colitis, unspecified; F10.10 Alcohol abuse, uncomplicated; J45.909 Unspecified asthma, uncomplicated; I10 Essential (primary) hypertension; G89.29 Other chronic pain; M54.5 Low back pain; K64.8 Other hemorrhoids; M19.90 Unspecified osteoarthritis, unspecified site; K59.00 Constipation, unspecified; N39.0 Urinary tract infection, site not specified; Z79.899 Other long term (current) drug therapy; Z82.3 Family history of stroke; Z82.49 Family history of ischemic heart disease and other diseases of the circulatory system; Z82.5 Family history of asthma and other chronic lower respiratory diseases; Z68.21 Body mass index [BMI] 21.0-21.9, adult; Z28.21 Immunization not carried out because of patient refusal
CPT/HCPCS: 36415; 45380; 71045; 74176; 74270; 80053; 80307; 80320; 81001; 82140; 82378; 83605; 83735; 84484; 85025; 85610; 85730; 87040; 94640; 96361; 96365; 96367; 96375; 97116; 97530; C9113; G0378; J1956; J2001; J2250; J2405; J2543; J3490

== ENCOUNTER 2019-12-18 13:29 | Inpatient (IN) | payer MEDICAID ==
[~2019-12-18] VITALS: Ht 177.8 cm; Wt 99.9 kg
[~2019-12-18 13:29] MED LIST changes: -ALBUPOW26; -BACL10TA OR; -CARI250T; -ENAL20TA70; -HYDR-1421; +METH-562 PO; +METO25TA93 PO; +POTA10TA51 PO; -POTA20TA53 OR
[2019-12-18] MEDS ORDERED: cloNIDine HCL 0.1 MG TAB PO ONE (14:00)
[2019-12-18 15:10] LABS: Albumin 3.5 g/dL (3.4-5.0); Anion Gap 5 (5-15); Blood Urea Nitrogen 12 mg/dL (7-18); Calcium 9.8 mg/dL (8.5-10.1); Carbon Dioxide 34 mmol/L (21-32); Chloride 103 mmol/L (98-107); Glucose 97 mg/dL (74-106); Magnesium 2.1 mg/dL (1.6-2.6); Potassium 3.3 mmol/L (3.5-5.1); Sodium 142 mmol/L (136-145)
[2019-12-18 15:29] LABS: Alanine Aminotransferase 15 U/L (13-56); Alkaline Phosphatase 80 U/L (45-117); Aspartate Aminotransferase 10 U/L (15-37); BUN/Creatinine Ratio 16.7; Bilirubin, Total 0.2 mg/dL (0.2-1.0); GFR African American 106 mL/min; GFR Non-African American 88 mL/min; Total Protein 7.5 g/dL (6.4-8.2)
[2019-12-18 16:23] LABS: Basophils # (auto) 0.1 10 ^3/uL (0-0.2); Basophils % (auto) 1.2 % (0.0-2.0); Eosinophils # (auto) 0.2 10 ^3/uL (0-0.8); Eosinophils % (auto) 2.7 % (0.0-7.0); Hematocrit 47.7 % (36.0-46.0); Hemoglobin 15.5 g/dL (12.2-16.2); Lymphocytes # (auto) 3.1 10 ^3/uL (0.4-5.4); Lymphocytes % (auto) 34.3 % (10.0-50.0); Mean Corpuscular Hemoglobin 31.7 pg (28.0-32.0); Mean Corpuscular Hgb Conc. 32.6 g/dL (32.0-36.0); Mean Corpuscular Volume 97.4 fL (80.0-100.0); Monocytes # (auto) 0.7 10 ^3/uL (0-1.3); Monocytes % (auto) 7.8 % (0.0-12.0); Neutrophils # (auto) 4.9 10 ^3/uL (1.6-8.6); Nucleated Red Blood Cells % 0.1 %; Platelet Count (auto) 204 10^3/uL (140-450); Red Cell Distribution Width 14.8 % (11.8-14.3)
[2019-12-18] MEDS ORDERED: HYDROcodone-ACET 10/325MG TAB PO ONE (16:45)
[2019-12-18] MEDS ORDERED: NITROGLYCERIN 0.4 MG SL TAB SL PRN (19:45)
[2019-12-18] MEDS ORDERED: DOCUSATE CALCIUM 240 MG CAP PO PRN (19:45)
[2019-12-18] MEDS ORDERED: LORazepam 2MG/ML-1ML VIAL IV PRN (19:45)
[2019-12-18] MEDS ORDERED: ALBUTEROL SULF 2.5 MG/0.5ML(0.5%) NEB SOLN NEB PRN (19:45)
[2019-12-18] MEDS ORDERED: POTASSIUM CHLORIDE 20 MEQ, LIDOCAINE 1% (LOCAL ANESTH.) 2 ML in SODIUM CHL 0.9% 100 ML IV ONE (19:45)
[2019-12-18] MEDS ORDERED: MORPHINE SULF INJ 2 MG/ML SYRINGE 1ML IV PRN ×2 (19:45)
[2019-12-18] MEDS ORDERED: ACETAMINOPHEN 500 MG TAB PO PRN (19:45)
[2019-12-18] MEDS ORDERED: ENALAPRILAT 1.25 MG/ML-1ML VIAL IV PRN (19:45)
[2019-12-18] MEDS ORDERED: D5W/SOD CHLO 0.9% 1,000 ML IV SCH (19:45)
[2019-12-18] MEDS: LABETALOL HCL 5 MG/ML 4ML SYRINGE IV PRN ×2 (20:10→23:32)
--- NOTE | 2019-12-18 23:32 | NUR ---
HOSPITALIST Called/paged Dr. COOPER called re:PATIENT REFUSED TO HAVE MORPHINE FOR PAIN AND WOULD LIKE TO HAVE NORCO. Waiting for call back. Continue care.
--- NOTE | 2019-12-18 23:32 | NUR ---
Telemetry admit from ER SHIRLENE DIOP admitted to Telemetry unit after SBAR received. Patient oriented to Chuy Swenson, primary RN, unit, room, bed, and unit policies regarding patient care and visiting hours. Patient now on continuous telemetry monitoring, tele box # [80] and telemetry reading on arrival to unit is [SR 76]. Patient placed on bedside oxygen, weighed by bedscale and encouraged to call if they need something. All questions and concerns addressed, patient verbalized understanding. Note: PATIENT'S BP 177/109 UPON ARRIVAL, MEDICATED PATIENT ORDERED. PATIENT C/O BL LOWER LEGS PAIN @ 10/10, PATIENT REFUSED TO HAVE MORPHINE AND PREFERRED TO HAVE NORCO. WILL PAGE HOSPITALIST LATER. CONTINUE TO MONITOR.
[2019-12-18 23:40] VITALS: BP 156/129
[2019-12-18] MEDS ORDERED: HYDR-4798 (23:49)
[2019-12-18] MEDS ORDERED: GABA100C9 PO (23:50)
[2019-12-18] MEDS ORDERED: ALBUAER3 IN (23:50)
--- NOTE | 2019-12-19 00:10 | NUR ---
HOSPITALIST Called/paged AGAIN Dr. COOPER called re:FOR MINESH. Waiting for call back. Continue care.
--- NOTE | 2019-12-19 00:19 | NUR ---
HOSPITALIST returned call Dr. COOPER returned call, updated on patient status and reason for call, orders received. NORCO 5/325 MG Q4HP. PO Continue care.
[2019-12-19] MEDS: HYDROcodone-ACET 5/325MG TAB PO PRN ×5 (00:53→21:10)
--- NOTE | 2019-12-19 01:15 | NUR ---
PT ASSESSED, NO SOB NOTED. SAT 95% ON RA. BS CLEAR/DIMINISHED BILATERALLY. MN TX NOT INDICATED AT THIS TIME.
--- NOTE | 2019-12-19 03:21 | NUR ---
PATIENT SLEEPING. NO S/S OF DISTRESS NOTED. CONTINUE CARE.
[2019-12-19 03:44] VITALS: BP 130/96
--- NOTE | 2019-12-19 04:41 | NUR ---
URINE SAMPLE COLLECTED AND SENT. CONTINUE TO MONITOR.
[2019-12-19 05:00] VITALS: BP 171/88
[2019-12-19] MEDS: LABETALOL HCL 5 MG/ML 4ML SYRINGE IV PRN (05:09)
--- NOTE | 2019-12-19 05:09 | NUR ---
PATIENT C/O PAIN @ 10/18, AND REQUESTED NORCO. MEDICATED PATIENT ORDERED. BP MEDICATION GIVEN FOR BP 171/88, HR 74.. CONTINUE TO MONITOR.
[2019-12-19 06:13] LABS: Urine Bacteria NONE SEEN /hpf (None Seen); Urine Blood Negative /uL (Negative); Urine Specific Gravity 1.015 (1.001-1.035); Urine WBC <1 /hpf (0 - 5)
[2019-12-19 06:35] LABS: Basophils # (auto) 0 10 ^3/uL (0-0.2); Basophils % (auto) 0.6 % (0.0-2.0); Eosinophils # (auto) 0.2 10 ^3/uL (0-0.8); Eosinophils % (auto) 3.2 % (0.0-7.0); Hematocrit 41.2 % (36.0-46.0); Hemoglobin 13.5 g/dL (12.2-16.2); Lymphocytes % (auto) 39.7 % (10.0-50.0); Mean Corpuscular Hemoglobin 31.8 pg (28.0-32.0); Mean Corpuscular Hgb Conc. 32.7 g/dL (32.0-36.0); Mean Corpuscular Volume 97.3 fL (80.0-100.0); Monocytes # (auto) 0.7 10 ^3/uL (0-1.3); Monocytes % (auto) 9.5 % (0.0-12.0); Neutrophils # (auto) 3.5 10 ^3/uL (1.6-8.6); Nucleated Red Blood Cells % 0.1 %; Platelet Count (auto) 177 10^3/uL (140-450); Red Blood Cells 4.24 10^6/uL (4.0-5.20); Red Cell Distribution Width 14.5 % (11.8-14.3); White Blood Cell 7.5 10^3/uL (4.4-10.8)
[2019-12-19 06:45] LABS: Albumin 2.9 g/dL (3.4-5.0); Potassium 3.4 mmol/L (3.5-5.1)
[2019-12-19 06:51] LABS: BUN/Creatinine Ratio 20.8; Bilirubin, Total 0.4 mg/dL (0.2-1.0); Total Protein 6.2 g/dL (6.4-8.2)
--- NOTE | 2019-12-19 07:31 | NUR ---
Assumed care of Pt. She is sleeping comfortably in bed at this time. Bed in lowest position, call light within reach.
[2019-12-19 09:22] VITALS: BP 151/85
[2019-12-19] MEDS: PANTOPRAZOLE 40 MG TAB PO SCH (10:05)
[2019-12-19] MEDS: ENOXAPARIN SOD 40 MG/0.4 ML SYRINGE SC SCH (10:05)
[2019-12-19 13:30] VITALS: BP 140/81
[2019-12-19] MEDS ORDERED: FUROSEMIDE 40 MG/4 ML VIAL IV ONE (14:15)
--- NOTE | 2019-12-19 15:30 | NUR ---
Pt. has been having multiple voids. She states being unable to get up and use bedside commode, so she has been using bedpan. She wet her bed two times, all linen was changed with help of WRAPPER SIZER.
[2019-12-19 17:04] VITALS: BP 142/69
[2019-12-19] MEDS: SPIRONOLACTONE 25 MG TAB PO SCH (18:00)
--- NOTE | 2019-12-19 18:06 | NUR ---
Pt. is sitting comfortably in bed. She has bedpan under bed and has been using it this way and staff has been emptying it every 30 minutes. She states she prefers it this way so she doesn't have to wait for nurses to help her. She was given Lasix and Spironolactone, she states her feet hurt less.
--- NOTE | 2019-12-19 18:23 | NUR ---
Respiratory note: ASSESSMENT FOR PRN MED NEB TX. PT IN NO RESPIRATORY DISTRESS AT THIS TIME. PT FOUND ON ROOM AIR, PLACED ON 2L NC. HR 77, SPO2 91% ON 2L NC, RR 17, DIMINISHED BS. MED NEB TX NOT INDICATED AT THIS TIME, WILL CONTINUE TO MONITOR.
--- NOTE | 2019-12-19 19:55 | NUR ---
Opening Shift Note Assumed care of patient, awake and alert. No S/S of distress/SOB noted. Bed is in lowest locked position with bed rails up x2 and call light is within reach of the patient. Instructed on POC and to call for assist PRN.
[2019-12-19] MEDS: POTASSIUM CHL 20 Meq TABLET PO SCH (21:19)
[2019-12-19 21:40] VITALS: BP 156/80
[2019-12-20 05:00] VITALS: BP 156/101
[2019-12-20] MEDS: HYDROcodone-ACET 5/325MG TAB PO PRN ×4 (05:34→17:58)
[2019-12-20] MEDS: SPIRONOLACTONE 25 MG TAB PO SCH ×2 (05:41→17:58)
[2019-12-20] MEDS: LABETALOL HCL 5 MG/ML 4ML SYRINGE IV PRN (05:47)
--- NOTE | 2019-12-20 05:47 | NUR ---
Elevated Blood pressure: Patients blood pressure elevated as 184/103, heart rate 80. To give PRN medication for blood pressure and will reassess.
[2019-12-20 06:06] LABS: Potassium 3.9 mmol/L (3.5-5.1)
[2019-12-20 06:12] LABS: BUN/Creatinine Ratio 14.9; Calcium 9.6 mg/dL (8.5-10.1)
--- NOTE | 2019-12-20 06:50 | NUR ---
Blood pressure reassessed: Blood pressure reassessed at 154/73, heart rate 79. Patient resting in bed with breaths even and unlabored. No s/s of distress SOB or pain noted.
[2019-12-20 07:30] VITALS: BP 145/80
[2019-12-20] MEDS: POTASSIUM CHL 20 Meq TABLET PO SCH (08:59)
[2019-12-20] MEDS: PANTOPRAZOLE 40 MG TAB PO SCH (08:59)
[2019-12-20] MEDS ORDERED: FUROSEMIDE 40 MG/4 ML VIAL IV SCH (10:00)
[2019-12-20] MEDS: ENOXAPARIN SOD 40 MG/0.4 ML SYRINGE SC SCH (10:04)
[2019-12-20 12:30] VITALS: BP 148/73
[2019-12-20 16:26] VITALS: BP 145/80
--- NOTE | 2019-12-20 18:19 | NUR ---
Discharge instructions given as ordered. Encourage to follow up with PMD as instructed. All questions and concerns addressed. Patient verbalized understanding. Patient is not happy that she's getting discharged, stating she can't even walk yet. Pt did refused MD's plan to be transferred to a rehab, stating "i don't want to go to a rehab". Medication reconciliation form completed and copy given to patient. IV removed with catheter intact, pressure dressing applied. PT IS WAITING FOR TRANSPORTATION.
--- NOTE | 2019-12-20 20:06 | NUR ---
Regular Discharge Patient discharged to home with all of patients belongings and taken down to familys car via wheel chair. Patient tolerated well. Discharged with discharge paperwork. Telemetry box removed cleaned and sent back to monitor and storage bin tender room. All IV's have been removed and secured with gauze and coband.
--- NOTE | 2019-12-20 20:18 | NUR ---
Prescription left, called family: Called and spoke with patients sister Micah #[phone] who picked up the patient regarding spirolactone prescription left at hospital. Patient and Cama sister stated that they would pick it up at the hospital tomorrow. Explained for them to call the hospital #[phone] and contact the charge nurse to milk pickup driver prescription tomorrow. Patient and patients sister verbalized understanding and are to pick it up tomorrow.
== END 2019-12-20 20:06 | disposition home or self-care (01) | DRG 199 ==
LOC: EDBD 13:29 → ER 13:29 → TELE-WESTW 13:30
PROVIDERS: ADMIT Family Medicine; ATTEND Family Medicine
DX: I16.0 Hypertensive urgency (principal); E87.6 Hypokalemia; I11.0 Hypertensive heart disease with heart failure; E44.0 Moderate protein-calorie malnutrition; I50.9 Heart failure, unspecified; J44.9 Chronic obstructive pulmonary disease, unspecified; Z82.3 Family history of stroke; Z82.49 Family history of ischemic heart disease and other diseases of the circulatory system; Z82.5 Family history of asthma and other chronic lower respiratory diseases; Z79.899 Other long term (current) drug therapy; Z98.51 Tubal ligation status; M19.90 Unspecified osteoarthritis, unspecified site; E88.09 Other disorders of plasma-protein metabolism, not elsewhere classified; R53.1 Weakness; G62.1 Alcoholic polyneuropathy; Z91.19 Patient's noncompliance with other medical treatment and regimen; Z68.28 Body mass index [BMI] 28.0-28.9, adult
CPT/HCPCS: 36415; 71045; 73562; 73630; 80048; 80053; 80061; 81001; 83735; 83880; 84443; 84484; 85025; 93005; 93970; 96365; 96372; 96375; 99291; G0378; J2001; J3490

== ENCOUNTER 2020-04-14 20:58 | Inpatient (IN) | payer MEDICAID ==
[~2020-04-14] VITALS: Ht 175.3 cm; Wt 87.9 kg
[~2020-04-14 20:58] MED LIST changes: +ALBUAER3 IN; +GABA100C9 PO; +HYDR-4798
[2020-04-14] MEDS ORDERED: NITROGLYCERIN 0.2MG/HR TOPICAL PATCH TD ONE (21:15)
[2020-04-14] MEDS ORDERED: ENALAPRILAT 1.25 MG/ML-1ML VIAL IV ONE (21:15)
[2020-04-14] MEDS ORDERED: ONDANSETRON HCL 4 MG/2 ML VIAL IV ONE (21:15)
[2020-04-14] MEDS ORDERED: MORPHINE SULFATE 4 MG/ML SYR/VIAL IV ONE (21:15)
[2020-04-14] MEDS ORDERED: ASPirin 81 mg TAB PO ONE (21:15)
[2020-04-14 22:10] LABS: Basophils # (auto) 0.1 10 ^3/uL (0-0.2); Basophils % (auto) 0.7 % (0.0-2.0); Eosinophils # (auto) 0.2 10 ^3/uL (0-0.8); Eosinophils % (auto) 1.7 % (0.0-7.0); Hematocrit 42.9 % (36.0-46.0); Hemoglobin 14.4 g/dL (12.2-16.2); Lymphocytes # (auto) 2.8 10 ^3/uL (0.4-5.4); Mean Corpuscular Hemoglobin 31.6 pg (28.0-32.0); Mean Corpuscular Hgb Conc. 33.6 g/dL (32.0-36.0); Mean Corpuscular Volume 93.9 fL (80.0-100.0); Monocytes # (auto) 0.7 10 ^3/uL (0-1.3); Monocytes % (auto) 6.8 % (0.0-12.0); Neutrophils # (auto) 6.2 10 ^3/uL (1.6-8.6); Neutrophils % (auto) 62.8 % (37.0-80.0); Nucleated Red Blood Cells % 0.1 %; Platelet Count (auto) 199 10^3/uL (140-450); Red Blood Cells 4.56 10^6/uL (4.0-5.20); White Blood Cell 9.9 10^3/uL (4.4-10.8)
[2020-04-14 22:32] LABS: Blood Urea Nitrogen 10 mg/dL (7-18); Chloride 104 mmol/L (98-107); Sodium 141 mmol/L (136-145)
[2020-04-14 22:36] LABS: INR 0.97 (0.9-1.15); Partial Thromboplastin Time 29.3 sec (23.0-31.2)
[2020-04-14 22:48] LABS: Alanine Aminotransferase 14 U/L (13-56); Alkaline Phosphatase 118 U/L (45-117); Anion Gap 3 (5-15); Aspartate Aminotransferase 6 U/L (15-37); BUN/Creatinine Ratio 14.9; Bilirubin, Total 0.3 mg/dL (0.2-1.0); Carbon Dioxide 34 mmol/L (21-32); GFR African American 115 mL/min; GFR Non-African American 95 mL/min; Glucose 97 mg/dL (74-106); Total Protein 7.5 g/dL (6.4-8.2)
[2020-04-15] MEDS ORDERED: HYDROmorphone HCL 2 MG/ML VL IV STA (01:25)
[2020-04-15] MEDS ORDERED: MORPHINE SULFATE 4 MG/ML SYR/VIAL IV STA (02:43)
[2020-04-15] MEDS ORDERED: POTASSIUM EFFERVESENT TAB 25 MEQ PO ONE (02:45)
[2020-04-15] MEDS ORDERED: ATENOLOL 50 MG TAB PO STA (03:53)
[2020-04-15] MEDS ORDERED: ONDANSETRON HCL 4 MG/2 ML VIAL IV PRN (04:45)
[2020-04-15] MEDS ORDERED: MORPHINE SULF INJ 2 MG/ML SYRINGE 1ML IV PRN (04:45)
[2020-04-15] MEDS ORDERED: MORPHINE SULFATE 4 MG/ML SYR/VIAL IV PRN (04:45)
[2020-04-15] MEDS ORDERED: NITROGLYCERIN 0.4 MG SL TAB SL PRN (04:45)
[2020-04-15] MEDS ORDERED: DOCUSATE SOD 100 MG CAP PO PRN (04:45)
[2020-04-15] MEDS ORDERED: ALBUTEROL SULF HFA 90MCG INH 200DOSE IN SCH (06:00)
[2020-04-15] MEDS: SODIUM CHLOR 0.9% PF (SALINE LOCK) 10ML VIAL/SYR IV SCH ×3 (06:03→22:02)
[2020-04-15] MEDS: HYDROcodone-ACET 5/325MG TAB PO PRN ×3 (06:08→19:47)
[2020-04-15 07:41] LABS: Basophils # (auto) 0.1 10 ^3/uL (0-0.2); Basophils % (auto) 0.8 % (0.0-2.0); Eosinophils # (auto) 0.2 10 ^3/uL (0-0.8); Eosinophils % (auto) 2.3 % (0.0-7.0); Hematocrit 36.5 % (36.0-46.0); Hemoglobin 11.8 g/dL (12.2-16.2); Lymphocytes # (auto) 2.3 10 ^3/uL (0.4-5.4); Lymphocytes % (auto) 27.7 % (10.0-50.0); Mean Corpuscular Hemoglobin 30.6 pg (28.0-32.0); Mean Corpuscular Hgb Conc. 32.4 g/dL (32.0-36.0); Mean Corpuscular Volume 94.5 fL (80.0-100.0); Monocytes # (auto) 0.7 10 ^3/uL (0-1.3); Monocytes % (auto) 8.7 % (0.0-12.0); Neutrophils % (auto) 60.5 % (37.0-80.0); Nucleated Red Blood Cells % 0.1 %; Platelet Count (auto) 182 10^3/uL (140-450); Red Blood Cells 3.86 10^6/uL (4.0-5.20); White Blood Cell 8.2 10^3/uL (4.4-10.8)
[2020-04-15 07:58] LABS: Albumin 2.5 g/dL (3.4-5.0); Calcium 8.1 mg/dL (8.5-10.1); Potassium 3.8 mmol/L (3.5-5.1)
[2020-04-15 08:00] VITALS: BP 136/89
[2020-04-15 08:02] LABS: BUN/Creatinine Ratio 14.3; Bilirubin, Total 0.3 mg/dL (0.2-1.0); Total Protein 5.9 g/dL (6.4-8.2)
[2020-04-15 09:00] VITALS: BP 136/89
[2020-04-15] MEDS: FUROSEMIDE 40 MG/4 ML VIAL IV SCH (09:36)
[2020-04-15] MEDS: POTASSIUM CHL 20 Meq TABLET PO SCH (09:36)
[2020-04-15] MEDS: FAMOTIDINE (10MG/ML) 2ML VL IV SCH ×2 (09:36→22:02)
[2020-04-15] MEDS: ASPirin 81 mg TAB PO SCH (09:36)
[2020-04-15] MEDS: MULTIPLE VITAMIN TAB PO SCH (09:36)
[2020-04-15] MEDS: ENOXAPARIN SOD 40 MG/0.4 ML SYRINGE SC SCH (09:37)
[2020-04-15] MEDS: ASCORBIC ACID 500 MG TAB PO SCH ×2 (09:37→22:02)
[2020-04-15] MEDS: amLODIPine BESYLATE 5 MG TAB PO SCH (09:37)
[2020-04-15] MEDS: METOPROLOL TARTRATE 25 MG TAB PO SCH ×2 (09:39→22:00)
[2020-04-15 16:00] VITALS: BP 140/78
[2020-04-15 23:58] VITALS: BP 155/90
[2020-04-16 02:51] VITALS: BP 146/69
[2020-04-16] MEDS: HYDROcodone-ACET 5/325MG TAB PO PRN ×5 (04:04→20:26)
[2020-04-16] MEDS: SODIUM CHLOR 0.9% PF (SALINE LOCK) 10ML VIAL/SYR IV SCH ×3 (05:14→22:20)
[2020-04-16 07:50] VITALS: BP 155/94
[2020-04-16 08:00] VITALS: BP 155/94
[2020-04-16] MEDS: POTASSIUM CHL 20 Meq TABLET PO SCH (08:03)
[2020-04-16] MEDS: MULTIPLE VITAMIN TAB PO SCH (08:04)
[2020-04-16] MEDS: amLODIPine BESYLATE 5 MG TAB PO SCH (08:04)
[2020-04-16] MEDS: ASCORBIC ACID 500 MG TAB PO SCH ×2 (08:05→22:20)
[2020-04-16] MEDS: ASPirin 81 mg TAB PO SCH (08:05)
[2020-04-16] MEDS: METOPROLOL TARTRATE 25 MG TAB PO SCH ×2 (08:05→22:20)
[2020-04-16] MEDS: FUROSEMIDE 40 MG/4 ML VIAL IV SCH (08:07)
[2020-04-16] MEDS: FAMOTIDINE (10MG/ML) 2ML VL IV SCH ×2 (08:07→22:20)
[2020-04-16] MEDS: AZITHROMYCIN 500MG/ 250ML 250 ML IV SCH ×2 (08:07→09:20)
[2020-04-16] MEDS: ENOXAPARIN SOD 40 MG/0.4 ML SYRINGE SC SCH (08:08)
[2020-04-16] MEDS: CEFTRIAXONE SODIUM 2 GM in D5W 5% 50 ML IV SCH (09:00)
[2020-04-16 14:49] LABS: Basophils # (auto) 0.1 10 ^3/uL (0-0.2); Basophils % (auto) 1.1 % (0.0-2.0); Eosinophils # (auto) 0.2 10 ^3/uL (0-0.8); Eosinophils % (auto) 2.9 % (0.0-7.0); Hematocrit 45.2 % (36.0-46.0); Hemoglobin 14.9 g/dL (12.2-16.2); Lymphocytes # (auto) 2.8 10 ^3/uL (0.4-5.4); Lymphocytes % (auto) 35.6 % (10.0-50.0); Mean Corpuscular Hemoglobin 30.7 pg (28.0-32.0); Mean Corpuscular Volume 93.1 fL (80.0-100.0); Monocytes # (auto) 0.6 10 ^3/uL (0-1.3); Monocytes % (auto) 7.5 % (0.0-12.0); Neutrophils # (auto) 4.2 10 ^3/uL (1.6-8.6); Neutrophils % (auto) 52.9 % (37.0-80.0); Nucleated Red Blood Cells % 0.1 %; Platelet Count (auto) 220 10^3/uL (140-450); Red Blood Cells 4.86 10^6/uL (4.0-5.20); Red Cell Distribution Width 14.8 % (11.8-14.3)
[2020-04-16 15:06] LABS: Albumin 3.3 g/dL (3.4-5.0); Calcium 9.6 mg/dL (8.5-10.1); Potassium 3.5 mmol/L (3.5-5.1)
[2020-04-16 15:10] LABS: BUN/Creatinine Ratio 15.3; Bilirubin, Total 0.4 mg/dL (0.2-1.0); Total Protein 8.2 g/dL (6.4-8.2)
[2020-04-16 16:00] VITALS: BP 150/82
[2020-04-16] MEDS: ACETAMINOPHEN 325 MG TAB PO PRN (22:21)
[2020-04-16 23:30] VITALS: BP 148/89
[2020-04-17] MEDS: HYDROcodone-ACET 5/325MG TAB PO PRN ×5 (00:36→19:45)
[2020-04-17] MEDS: hydrALAZINE HCL 20 MG/ML VL IV PRN (01:13)
[2020-04-17] MEDS: SODIUM CHLOR 0.9% PF (SALINE LOCK) 10ML VIAL/SYR IV SCH ×3 (05:39→21:52)
[2020-04-17 08:00] VITALS: BP 145/82
[2020-04-17] MEDS: CEFTRIAXONE SODIUM 2 GM in D5W 5% 50 ML IV SCH (09:00)
[2020-04-17] MEDS: FUROSEMIDE 40 MG/4 ML VIAL IV SCH (10:13)
[2020-04-17] MEDS: ASPirin 81 mg TAB PO SCH (10:14)
[2020-04-17] MEDS: POTASSIUM CHL 20 Meq TABLET PO SCH (10:14)
[2020-04-17] MEDS: amLODIPine BESYLATE 5 MG TAB PO SCH (10:15)
[2020-04-17] MEDS: METOPROLOL TARTRATE 25 MG TAB PO SCH ×2 (10:15→21:52)
[2020-04-17] MEDS: ASCORBIC ACID 500 MG TAB PO SCH ×2 (10:16→21:52)
[2020-04-17] MEDS: MULTIPLE VITAMIN TAB PO SCH (10:16)
[2020-04-17] MEDS: FAMOTIDINE (10MG/ML) 2ML VL IV SCH ×2 (10:16→21:52)
[2020-04-17] MEDS: ENOXAPARIN SOD 40 MG/0.4 ML SYRINGE SC SCH (10:16)
[2020-04-17 16:00] VITALS: BP 127/70
[2020-04-18] VITALS: BP 131/86
[2020-04-18] MEDS: HYDROcodone-ACET 5/325MG TAB PO PRN ×4 (05:01→20:32)
[2020-04-18] MEDS: SODIUM CHLOR 0.9% PF (SALINE LOCK) 10ML VIAL/SYR IV SCH ×3 (06:06→22:27)
[2020-04-18] MEDS: ACETAMINOPHEN 325 MG TAB PO PRN (06:58)
[2020-04-18 08:00] VITALS: BP 155/89
[2020-04-18] MEDS: FAMOTIDINE (10MG/ML) 2ML VL IV SCH ×2 (09:23→22:26)
[2020-04-18] MEDS: CEFTRIAXONE SODIUM 2 GM in D5W 5% 50 ML IV SCH (09:23)
[2020-04-18] MEDS: FUROSEMIDE 40 MG/4 ML VIAL IV SCH (09:24)
[2020-04-18] MEDS: METOPROLOL TARTRATE 25 MG TAB PO SCH ×2 (09:25→22:27)
[2020-04-18] MEDS: ASPirin 81 mg TAB PO SCH (09:25)
[2020-04-18] MEDS: POTASSIUM CHL 20 Meq TABLET PO SCH (09:26)
[2020-04-18] MEDS: MULTIPLE VITAMIN TAB PO SCH (09:26)
[2020-04-18] MEDS: ENOXAPARIN SOD 40 MG/0.4 ML SYRINGE SC SCH (09:27)
[2020-04-18] MEDS: amLODIPine BESYLATE 5 MG TAB PO SCH (09:27)
[2020-04-18] MEDS: ASCORBIC ACID 500 MG TAB PO SCH ×2 (09:27→22:27)
[2020-04-18] MEDS: AZITHROMYCIN 500MG/ 250ML 250 ML IV SCH (12:16)
[2020-04-18] MEDS: hydrALAZINE HCL 20 MG/ML VL IV PRN (12:39)
[2020-04-18 16:00] VITALS: BP 147/75
[2020-04-18 23:54] VITALS: BP 136/85
[2020-04-19] MEDS: HYDROcodone-ACET 5/325MG TAB PO PRN ×5 (01:44→22:00)
[2020-04-19] MEDS: SODIUM CHLOR 0.9% PF (SALINE LOCK) 10ML VIAL/SYR IV SCH ×3 (05:26→22:02)
[2020-04-19 07:46] VITALS: BP 126/90
[2020-04-19] MEDS: CEFTRIAXONE SODIUM 2 GM in D5W 5% 50 ML IV SCH (09:00)
[2020-04-19 09:52] LABS: Basophils # (auto) 0 10 ^3/uL (0-0.2); Basophils % (auto) 0.3 % (0.0-2.0); Eosinophils # (auto) 0.3 10 ^3/uL (0-0.8); Eosinophils % (auto) 4.1 % (0.0-7.0); Hematocrit 46.1 % (36.0-46.0); Hemoglobin 15.3 g/dL (12.2-16.2); Lymphocytes # (auto) 2.6 10 ^3/uL (0.4-5.4); Lymphocytes % (auto) 40.3 % (10.0-50.0); Mean Corpuscular Hemoglobin 30.9 pg (28.0-32.0); Mean Corpuscular Hgb Conc. 33.2 g/dL (32.0-36.0); Mean Corpuscular Volume 93.2 fL (80.0-100.0); Monocytes # (auto) 0.7 10 ^3/uL (0-1.3); Monocytes % (auto) 10.4 % (0.0-12.0); Neutrophils # (auto) 2.9 10 ^3/uL (1.6-8.6); Neutrophils % (auto) 44.9 % (37.0-80.0); Nucleated Red Blood Cells % 0.2 %; Platelet Count (auto) 200 10^3/uL (140-450); Red Blood Cells 4.95 10^6/uL (4.0-5.20); Red Cell Distribution Width 15.5 % (11.8-14.3); White Blood Cell 6.4 10^3/uL (4.4-10.8)
[2020-04-19] MEDS: ASPirin 81 mg TAB PO SCH (10:18)
[2020-04-19] MEDS: FUROSEMIDE 40 MG/4 ML VIAL IV SCH (10:18)
[2020-04-19] MEDS: FAMOTIDINE (10MG/ML) 2ML VL IV SCH ×2 (10:18→22:02)
[2020-04-19] MEDS: AZITHROMYCIN 500MG/ 250ML 250 ML IV SCH (10:18)
[2020-04-19] MEDS: POTASSIUM CHL 20 Meq TABLET PO SCH (10:19)
[2020-04-19] MEDS: ENOXAPARIN SOD 40 MG/0.4 ML SYRINGE SC SCH (10:19)
[2020-04-19] MEDS: METOPROLOL TARTRATE 25 MG TAB PO SCH ×2 (10:19→22:03)
[2020-04-19] MEDS: MULTIPLE VITAMIN TAB PO SCH (10:19)
[2020-04-19] MEDS: ASCORBIC ACID 500 MG TAB PO SCH ×2 (10:19→22:04)
[2020-04-19] MEDS: amLODIPine BESYLATE 5 MG TAB PO SCH (10:24)
[2020-04-19 11:03] LABS: Albumin 3.2 g/dL (3.4-5.0); CRP High Sensitivity 0.76 mg/dL (< 0.3); Calcium 9.9 mg/dL (8.5-10.1); Magnesium 2.2 mg/dL (1.6-2.6); Phosphorus 3.4 mg/dL (2.5-4.90); Potassium 3.9 mmol/L (3.5-5.1)
[2020-04-19 11:06] LABS: BUN/Creatinine Ratio 17.5; Bilirubin, Total 0.3 mg/dL (0.2-1.0); Total Protein 7.8 g/dL (6.4-8.2)
[2020-04-19 16:38] VITALS: BP 159/85
[2020-04-19 16:46] VITALS: BP 139/78
[2020-04-19] MEDS: ALBUTEROL SULF HFA 90MCG INH 200DOSE IN PRN (20:23)
[2020-04-19 22:00] VITALS: BP 151/82
[2020-04-20] MEDS: HYDROcodone-ACET 5/325MG TAB PO PRN ×2 (02:09→09:16)
[2020-04-20 05:00] VITALS: BP 121/71
[2020-04-20] MEDS: SODIUM CHLOR 0.9% PF (SALINE LOCK) 10ML VIAL/SYR IV SCH (05:29)
[2020-04-20 09:00] VITALS: BP 137/96
[2020-04-20] MEDS: CEFTRIAXONE SODIUM 2 GM in D5W 5% 50 ML IV SCH (09:00)
[2020-04-20] MEDS: MULTIPLE VITAMIN TAB PO SCH (09:02)
[2020-04-20] MEDS: ASPirin 81 mg TAB PO SCH (09:02)
[2020-04-20] MEDS: ASCORBIC ACID 500 MG TAB PO SCH (09:02)
[2020-04-20] MEDS: METOPROLOL TARTRATE 25 MG TAB PO SCH (09:03)
[2020-04-20] MEDS: FUROSEMIDE 40 MG/4 ML VIAL IV SCH (09:05)
[2020-04-20] MEDS: amLODIPine BESYLATE 5 MG TAB PO SCH (09:05)
[2020-04-20] MEDS: ENOXAPARIN SOD 40 MG/0.4 ML SYRINGE SC SCH (09:05)
[2020-04-20] MEDS: POTASSIUM CHL 20 Meq TABLET PO SCH (09:06)
[2020-04-20] MEDS: FAMOTIDINE (10MG/ML) 2ML VL IV SCH (09:07)
[2020-04-20] MEDS: AZITHROMYCIN 500MG/ 250ML 250 ML IV SCH (09:08)
[2020-04-20] MEDS: ALBUTEROL SULF HFA 90MCG INH 200DOSE IN PRN (19:47)
== END 2020-04-20 10:31 | disposition home or self-care (01) | DRG 137 ==
LOC: EDBD 20:58 → ER 20:58 → TELE 20:59 → TELE-EAST 04-15 08:40 → TELE-WESTW 04-15 13:45
PROVIDERS: ADMIT Nurse Practitioner Family; ATTEND Internal Medicine
DX: U07.1 COVID-19 (principal); J96.01 Acute respiratory failure with hypoxia; J12.82 Pneumonia due to coronavirus disease 2019; I25.9 Chronic ischemic heart disease, unspecified; I10 Essential (primary) hypertension; E87.6 Hypokalemia; N39.0 Urinary tract infection, site not specified; E87.3 Alkalosis; J44.0 Chronic obstructive pulmonary disease with (acute) lower respiratory infection; E86.0 Dehydration; E66.01 Morbid (severe) obesity due to excess calories; J98.11 Atelectasis; F17.210 Nicotine dependence, cigarettes, uncomplicated; M19.90 Unspecified osteoarthritis, unspecified site; Z68.28 Body mass index [BMI] 28.0-28.9, adult; Z82.5 Family history of asthma and other chronic lower respiratory diseases; Z82.49 Family history of ischemic heart disease and other diseases of the circulatory system; Z82.3 Family history of stroke; Z79.899 Other long term (current) drug therapy; F12.90 Cannabis use, unspecified, uncomplicated
CPT/HCPCS: 36415; 71045; 80053; 83735; 83880; 84100; 84484; 85025; 85379; 85610; 85730; 86141; 87081; 87426; 94640; 96374; 96375; 96376; G0378; J0696; J2405; J3490; J7060

== ENCOUNTER 2020-12-28 13:47 | Inpatient (IN) | payer MEDICAID ==
[~2020-12-28] VITALS: Ht 175.3 cm; Wt 86.9 kg
[2020-12-28 20:18] LABS: Basophils # (auto) 0.1 10 ^3/uL (0-0.2); Basophils % (auto) 1.8 % (0.0-2.0); Eosinophils # (auto) 0.1 10 ^3/uL (0-0.8); Eosinophils % (auto) 1.2 % (0.0-7.0); Hematocrit 48.8 % (36.0-46.0); Lymphocytes # (auto) 2.7 10 ^3/uL (0.4-5.4); Lymphocytes % (auto) 32.7 % (10.0-50.0); Mean Corpuscular Hemoglobin 30.6 pg (28.0-32.0); Mean Corpuscular Hgb Conc. 32.9 g/dL (32.0-36.0); Monocytes # (auto) 0.7 10 ^3/uL (0-1.3); Monocytes % (auto) 9.1 % (0.0-12.0); Neutrophils # (auto) 4.5 10 ^3/uL (1.6-8.6); Neutrophils % (auto) 55.2 % (37.0-80.0); Nucleated Red Blood Cells % 0.1 %; Red Blood Cells 5.24 10^6/uL (4.0-5.20); White Blood Cell 8.2 10^3/uL (4.4-10.8)
[2020-12-28 20:47] LABS: Albumin 3.3 g/dL (3.4-5.0); BUN/Creatinine Ratio 27.8; Calcium 9.9 mg/dL (8.5-10.1); Magnesium 2.1 mg/dL (1.6-2.6); Potassium 3.7 mmol/L (3.5-5.1)
[2020-12-28 20:57] LABS: Bilirubin, Total 0.5 mg/dL (0.2-1.0); Total Protein 8.1 g/dL (6.4-8.2)
[2020-12-28] MEDS ORDERED: HYDROcodone-ACET 5/325MG TAB PO ONE (22:30)
[2020-12-28] MEDS ORDERED: amLODIPine BESYLATE 5 MG TAB PO ONE (22:30)
[2020-12-28] MEDS ORDERED: MORPHINE SULFATE 4 MG/ML SYR/VIAL IV PRN (23:15)
[2020-12-28] MEDS ORDERED: NITROGLYCERIN 0.4 MG SL TAB SL PRN (23:15)
[2020-12-28] MEDS ORDERED: ACETAMINOPHEN 325 MG TAB PO PRN (23:15)
[2020-12-28] MEDS ORDERED: ONDANSETRON HCL 4 MG/2 ML VIAL IV PRN (23:15)
[2020-12-28] MEDS ORDERED: TEMAZEPAM 15 MG CAP PO PRN (23:15)
[2020-12-28] MEDS ORDERED: MORPHINE SULFATE INJECTION 2 MG/ML SYRG IV PRN (23:15)
[2020-12-28] MEDS ORDERED: DOCUSATE SOD 100 MG CAP PO PRN (23:15)
[2020-12-28] MEDS ORDERED: NIFEdipine ER 30 MG TAB PO STA (23:19)
[2020-12-28] MEDS ORDERED: hydrALAZINE HCL 20 MG/ML VL IV PRN (23:30)
[2020-12-29] MEDS: HYDROcodone-ACET 5/325MG TAB PO PRN ×3 (00:32→18:26)
[2020-12-29 06:13] VITALS: BP 144/91
[2020-12-29 07:47] LABS: Basophils # (auto) 0 10 ^3/uL (0-0.2); Basophils % (auto) 0.7 % (0.0-2.0); Eosinophils # (auto) 0.2 10 ^3/uL (0-0.8); Eosinophils % (auto) 2.5 % (0.0-7.0); Hematocrit 47.5 % (36.0-46.0); Hemoglobin 15.5 g/dL (12.2-16.2); Lymphocytes # (auto) 2.6 10 ^3/uL (0.4-5.4); Lymphocytes % (auto) 38.6 % (10.0-50.0); Mean Corpuscular Hemoglobin 30.5 pg (28.0-32.0); Mean Corpuscular Hgb Conc. 32.6 g/dL (32.0-36.0); Mean Corpuscular Volume 93.5 fL (80.0-100.0); Monocytes # (auto) 0.6 10 ^3/uL (0-1.3); Neutrophils # (auto) 3.3 10 ^3/uL (1.6-8.6); Neutrophils % (auto) 49.2 % (37.0-80.0); Nucleated Red Blood Cells % 0.1 %; Red Blood Cells 5.08 10^6/uL (4.0-5.20); Red Cell Distribution Width 15.2 % (11.8-14.3); White Blood Cell 6.7 10^3/uL (4.4-10.8)
[2020-12-29 07:58] LABS: Albumin 2.9 g/dL (3.4-5.0); Calcium 9.6 mg/dL (8.5-10.1); Potassium 3.1 mmol/L (3.5-5.1)
[2020-12-29 08:00] LABS: BUN/Creatinine Ratio 24.2
[2020-12-29 08:03] LABS: Bilirubin, Total 0.3 mg/dL (0.2-1.0); Total Protein 7.4 g/dL (6.4-8.2)
[2020-12-29 08:11] VITALS: BP 145/85
[2020-12-29] MEDS: MULTIPLE VITAMIN TAB PO SCH (10:06)
[2020-12-29] MEDS: ENOXAPARIN SOD 40 MG/0.4 ML SYRINGE SC SCH (10:06)
[2020-12-29] MEDS: NIFEdipine ER 30 MG TAB PO SCH (10:08)
[2020-12-29] MEDS: ASCORBIC ACID 500 MG TAB PO SCH ×2 (10:09→21:25)
[2020-12-29] MEDS: ZINC SULFATE 220mg CAP or TAB PO SCH (10:09)
[2020-12-29] MEDS ORDERED: ALBUTEROL SULF 2.5 MG/0.5ML(0.5%) NEB SOLN NEB PRN (12:15)
[2020-12-29 13:15] VITALS: BP 142/87
[2020-12-29 14:38] VITALS: BP 142/87
[2020-12-29] MEDS: POTASSIUM CHL 20MEQ/100ML 100 ML IV SCH ×2 (16:03→18:26)
[2020-12-29 17:23] VITALS: BP 146/84
[2020-12-29] MEDS: METOPROLOL TARTRATE 25 MG TAB PO SCH (21:25)
[2020-12-29 22:00] VITALS: BP 137/86
[2020-12-30] MEDS: HYDROcodone-ACET 5/325MG TAB PO PRN (03:16)
[2020-12-30 05:00] VITALS: BP 146/75
[2020-12-30 08:34] VITALS: BP 146/99
[2020-12-30 08:49] LABS: Basophils # (auto) 0.1 10 ^3/uL (0-0.2); Basophils % (auto) 0.8 % (0.0-2.0); Eosinophils # (auto) 0.3 10 ^3/uL (0-0.8); Hematocrit 45.7 % (36.0-46.0); Hemoglobin 14.6 g/dL (12.2-16.2); Lymphocytes # (auto) 3.1 10 ^3/uL (0.4-5.4); Lymphocytes % (auto) 46.2 % (10.0-50.0); Mean Corpuscular Hemoglobin 30.2 pg (28.0-32.0); Mean Corpuscular Hgb Conc. 32.1 g/dL (32.0-36.0); Mean Corpuscular Volume 94.2 fL (80.0-100.0); Monocytes # (auto) 0.7 10 ^3/uL (0-1.3); Monocytes % (auto) 10.5 % (0.0-12.0); Neutrophils # (auto) 2.6 10 ^3/uL (1.6-8.6); Neutrophils % (auto) 38.5 % (37.0-80.0); Nucleated Red Blood Cells % 0.2 %; Red Blood Cells 4.85 10^6/uL (4.0-5.20); Red Cell Distribution Width 15.4 % (11.8-14.3); White Blood Cell 6.7 10^3/uL (4.4-10.8)
[2020-12-30 09:09] LABS: Albumin 2.9 g/dL (3.4-5.0); Calcium 9.5 mg/dL (8.5-10.1); Magnesium 2.4 mg/dL (1.6-2.6); Potassium 4.1 mmol/L (3.5-5.1)
[2020-12-30 09:13] LABS: BUN/Creatinine Ratio 20.4; Bilirubin, Total 0.3 mg/dL (0.2-1.0); Phosphorus 3.5 mg/dL (2.5-4.90); Total Protein 7.1 g/dL (6.4-8.2)
[2020-12-30] MEDS: MULTIPLE VITAMIN TAB PO SCH (09:58)
[2020-12-30] MEDS: ASCORBIC ACID 500 MG TAB PO SCH (09:58)
[2020-12-30] MEDS: ZINC SULFATE 220mg CAP or TAB PO SCH (09:58)
[2020-12-30] MEDS: NIFEdipine ER 30 MG TAB PO SCH (09:58)
[2020-12-30] MEDS: METOPROLOL TARTRATE 25 MG TAB PO SCH (09:59)
[2020-12-30] MEDS: ENOXAPARIN SOD 40 MG/0.4 ML SYRINGE SC SCH (09:59)
[2020-12-30 14:13] VITALS: BP 137/75
[2020-12-30 15:31] VITALS: BP 137/75
== END 2020-12-30 17:30 | disposition home or self-care (01) | DRG 199 ==
LOC: EDBD 13:47 → ER 13:47 → TELE 23:14 → TELE-CENTR 12-29 04:20
PROVIDERS: ADMIT Internal Medicine; ATTEND Internal Medicine
DX: I16.0 Hypertensive urgency (principal); L89.159 Pressure ulcer of sacral region, unspecified stage; E44.1 Mild protein-calorie malnutrition; T74.01XA Adult neglect or abandonment, confirmed, initial encounter; I10 Essential (primary) hypertension; Z74.01 Bed confinement status; Z20.822 Contact with and (suspected) exposure to COVID-19; E87.6 Hypokalemia; F17.210 Nicotine dependence, cigarettes, uncomplicated; J44.9 Chronic obstructive pulmonary disease, unspecified; Z82.3 Family history of stroke; Z82.49 Family history of ischemic heart disease and other diseases of the circulatory system; Z82.5 Family history of asthma and other chronic lower respiratory diseases; Y92.89 Other specified places as the place of occurrence of the external cause; Z68.27 Body mass index [BMI] 27.0-27.9, adult
CPT/HCPCS: 36415; 80053; 83605; 83735; 84100; 85025; 87426; 93005; 94640; 96372; 96374; G0378; J3480

== ENCOUNTER 2021-02-02 07:57 | Emergency (ER) | payer MEDICAID ==
[~2021-02-02] VITALS: Ht 162.6 cm; Wt 113.4 kg
[~2021-02-02 07:57] MED LIST changes: -AML5T PO
[2021-02-02 08:49] LABS: Albumin 2.8 g/dL (3.4-5.0)
[2021-02-02 08:55] LABS: Bilirubin, Total 0.5 mg/dL (0.2-1.0); Total Protein 6.9 g/dL (6.4-8.2)
[2021-02-02 09:31] LABS: Basophils # (auto) 0 10 ^3/uL (0-0.2); Basophils % (auto) 0.4 % (0.0-2.0); Eosinophils # (auto) 0.2 10 ^3/uL (0-0.8); Eosinophils % (auto) 2.4 % (0.0-7.0); Hematocrit 46.2 % (36.0-46.0); Hemoglobin 14.7 g/dL (12.2-16.2); Lymphocytes # (auto) 2.7 10 ^3/uL (0.4-5.4); Lymphocytes % (auto) 36.7 % (10.0-50.0); Mean Corpuscular Hemoglobin 29.9 pg (28.0-32.0); Mean Corpuscular Hgb Conc. 31.9 g/dL (32.0-36.0); Mean Corpuscular Volume 93.8 fL (80.0-100.0); Monocytes # (auto) 0.6 10 ^3/uL (0-1.3); Monocytes % (auto) 8.4 % (0.0-12.0); Neutrophils # (auto) 3.9 10 ^3/uL (1.6-8.6); Neutrophils % (auto) 52.1 % (37.0-80.0); Nucleated Red Blood Cells % 0.1 %; Red Blood Cells 4.93 10^6/uL (4.0-5.20); White Blood Cell 7.5 10^3/uL (4.4-10.8)
[2021-02-02] MEDS ORDERED: LABETALOL HCL 5 MG/ML 4ML SYRINGE IV ONE (11:15)
[2021-02-02] MEDS ORDERED: HYDROcodone-ACET 5/325MG TAB PO ONE (16:45)
[2021-02-02 19:20] VITALS: BP 150/88
== END 2021-02-02 20:30 | disposition home or self-care (01) ==
LOC: ER 07:57 → EDBD 07:57 → ER 20:30
DX: K80.20 Calculus of gallbladder without cholecystitis without obstruction (principal); I11.0 Hypertensive heart disease with heart failure; I50.9 Heart failure, unspecified; J44.9 Chronic obstructive pulmonary disease, unspecified; F12.10 Cannabis abuse, uncomplicated; Z87.891 Personal history of nicotine dependence
CPT/HCPCS: 36415; 70450; 74176; 80053; 83605; 83690; 84484; 85025; 87040; 96374; 99285; J3490

== ENCOUNTER 2021-08-03 19:55 | Inpatient (IN) | payer MEDICAID ==
[~2021-08-03] VITALS: Ht 172.7 cm; Wt 101.3 kg
[2021-08-03] MEDS ORDERED: ASPirin 81 mg TAB PO ONE (20:30)
[2021-08-03 21:27] LABS: Basophils # (auto) 0.2 10 ^3/uL (0-0.2); Basophils % (auto) 2.9 % (0.0-2.0); Eosinophils # (auto) 0.2 10 ^3/uL (0-0.8); Eosinophils % (auto) 2.8 % (0.0-7.0); Hematocrit 44.3 % (36.0-46.0); Hemoglobin 14.2 g/dL (12.2-16.2); Lymphocytes % (auto) 37.4 % (10.0-50.0); Mean Corpuscular Hemoglobin 30.1 pg (28.0-32.0); Mean Corpuscular Hgb Conc. 32.1 g/dL (32.0-36.0); Mean Corpuscular Volume 93.8 fL (80.0-100.0); Monocytes # (auto) 0.5 10 ^3/uL (0-1.3); Monocytes % (auto) 6.6 % (0.0-12.0); Neutrophils % (auto) 50.3 % (37.0-80.0); Nucleated Red Blood Cells % 0.1 %; Red Blood Cells 4.72 10^6/uL (4.0-5.20); Red Cell Distribution Width 14.8 % (11.8-14.3)
[2021-08-03 21:43] LABS: BUN/Creatinine Ratio 22.1; Calcium 9.6 mg/dL (8.5-10.1); Magnesium 2.3 mg/dL (1.6-2.6); Potassium 3.6 mmol/L (3.5-5.1)
[2021-08-03 21:45] LABS: Bilirubin, Total 0.2 mg/dL (0.2-1.0); Total Protein 7.4 g/dL (6.4-8.2)
[2021-08-03] MEDS ORDERED: NITROGLYCERIN 0.4 MG SL TAB SL ONE (22:00)
[2021-08-03 23:54] LABS: Urine Bacteria MANY /hpf (None Seen); Urine Blood Negative /uL (Negative); Urine Specific Gravity 1.014 (1.001-1.035); Urine WBC 12 /hpf (0 - 5); Urine WBC Clumps PRESENT /hpf (None Seen)
[2021-08-04] MEDS ORDERED: OXYCODONE W/ ACETAMINOPHEN 5/325MG TABLET PO ONE (01:00)
[2021-08-04] MEDS ORDERED: NITROGLYCERIN 0.4 MG SL TAB SL PRN (01:00)
[2021-08-04] MEDS ORDERED: MORPHINE SULFATE INJ 2 MG/ml SYRG IV PRN (01:00)
[2021-08-04] MEDS ORDERED: METOPROLOL SUCCINATE XL 50 MG TAB PO ONE (01:00)
[2021-08-04] MEDS ORDERED: DOCUSATE SOD 100 MG CAP PO PRN (01:00)
[2021-08-04] MEDS: HYDROcodone-ACET 5/325MG TAB PO PRN ×4 (03:03→22:21)
[2021-08-04] MEDS: hydrALAZINE HCL 20 MG/ML VL IV PRN ×3 (05:24→22:57)
[2021-08-04 09:00] VITALS: BP 184/101
[2021-08-04] MEDS: METOPROLOL SUCCINATE XL 50 MG TAB PO SCH (09:00)
[2021-08-04] MEDS: ASCORBIC ACID 500 MG TAB PO SCH ×2 (09:00→22:20)
[2021-08-04] MEDS: MULTIPLE VITAMIN TAB PO SCH (09:00)
[2021-08-04] MEDS: ZINC SULFATE 220mg CAP or TAB PO SCH (09:00)
[2021-08-04] MEDS: ENOXAPARIN SOD 40 MG/0.4 ML SYRINGE SC SCH (09:01)
[2021-08-04 09:35] VITALS: BP 186/101
[2021-08-04] MEDS ORDERED: amLODIPine BESYLATE 5 MG TAB PO SCH (10:00)
[2021-08-04] MEDS ORDERED: NITROGLYCERIN 0.4 MG SL TAB SL ONE (10:00)
[2021-08-04 12:15] VITALS: BP 168/96
[2021-08-04 18:17] VITALS: BP 196/127
[2021-08-04 19:42] VITALS: BP 148/65
[2021-08-04 22:00] VITALS: BP 161/97
[2021-08-04] MEDS: TEMAZEPAM 15 MG CAP PO PRN (22:21)
[2021-08-05] MEDS: HYDROcodone-ACET 5/325MG TAB PO PRN ×4 (03:58→22:43)
[2021-08-05 05:00] VITALS: BP 163/87
[2021-08-05 05:43] LABS: Basophils # (auto) 0.1 10 ^3/uL (0-0.2); Basophils % (auto) 0.8 % (0.0-2.0); Eosinophils # (auto) 0.2 10 ^3/uL (0-0.8); Eosinophils % (auto) 2.8 % (0.0-7.0); Hematocrit 44.7 % (36.0-46.0); Hemoglobin 14.7 g/dL (12.2-16.2); Lymphocytes # (auto) 2.7 10 ^3/uL (0.4-5.4); Mean Corpuscular Hemoglobin 30.7 pg (28.0-32.0); Mean Corpuscular Volume 93.2 fL (80.0-100.0); Monocytes # (auto) 0.6 10 ^3/uL (0-1.3); Neutrophils # (auto) 4.3 10 ^3/uL (1.6-8.6); Neutrophils % (auto) 54.4 % (37.0-80.0); Red Cell Distribution Width 14.7 % (11.8-14.3)
[2021-08-05 06:08] LABS: Albumin 2.9 g/dL (3.4-5.0); BUN/Creatinine Ratio 27.6; Calcium 9.6 mg/dL (8.5-10.1); Potassium 3.6 mmol/L (3.5-5.1)
[2021-08-05 06:10] LABS: Bilirubin, Total 0.3 mg/dL (0.2-1.0); Total Protein 7.1 g/dL (6.4-8.2)
[2021-08-05] MEDS: hydrALAZINE HCL 20 MG/ML VL IV PRN ×3 (08:29→22:45)
[2021-08-05 08:30] VITALS: BP 210/116
[2021-08-05 09:00] VITALS: BP 187/115
[2021-08-05] MEDS ORDERED: ASPI81CH74 PO (09:07)
[2021-08-05] MEDS: amLODIPine BESYLATE 5 MG TAB PO SCH (09:31)
[2021-08-05] MEDS: ZINC SULFATE 220mg CAP or TAB PO SCH (09:32)
[2021-08-05] MEDS: METOPROLOL SUCCINATE XL 50 MG TAB PO SCH (09:32)
[2021-08-05] MEDS: PANTOPRAZOLE 40 MG TAB PO SCH (09:32)
[2021-08-05] MEDS: MULTIPLE VITAMIN TAB PO SCH (09:32)
[2021-08-05] MEDS: ASCORBIC ACID 500 MG TAB PO SCH ×2 (09:32→22:42)
[2021-08-05] MEDS: ENOXAPARIN SOD 40 MG/0.4 ML SYRINGE SC SCH (09:33)
[2021-08-05 12:47] VITALS: BP 117/75
[2021-08-05] MEDS: ONDANSETRON HCL 4 MG/2 ML VIAL IV PRN (16:34)
[2021-08-05] MEDS: MORPHINE SULFATE INJ 2 MG/ml SYRG IV PRN (16:34)
[2021-08-05 16:39] VITALS: BP 166/86
[2021-08-05] MEDS: TEMAZEPAM 15 MG CAP PO PRN (23:23)
[2021-08-06] MEDS: ACETAMINOPHEN 325 MG TAB PO PRN ×2 (03:29→11:50)
[2021-08-06 05:00] VITALS: BP 161/93
[2021-08-06] MEDS: hydrALAZINE HCL 20 MG/ML VL IV PRN ×2 (05:54→11:50)
[2021-08-06 08:00] VITALS: BP 163/100
[2021-08-06] MEDS ORDERED: LABETALOL HCL 200 MG TAB PO PRN (08:15)
[2021-08-06 08:44] VITALS: BP 162/99
[2021-08-06] MEDS: ONDANSETRON HCL 4 MG/2 ML VIAL IV PRN (10:56)
[2021-08-06] MEDS: MORPHINE SULFATE INJ 2 MG/ml SYRG IV PRN ×2 (10:57→15:09)
[2021-08-06] MEDS: amLODIPine BESYLATE 5 MG TAB PO SCH (10:58)
[2021-08-06] MEDS: MULTIPLE VITAMIN TAB PO SCH (10:59)
[2021-08-06] MEDS: PANTOPRAZOLE 40 MG TAB PO SCH (10:59)
[2021-08-06] MEDS: ZINC SULFATE 220mg CAP or TAB PO SCH (10:59)
[2021-08-06] MEDS: ASCORBIC ACID 500 MG TAB PO SCH ×2 (10:59→21:13)
[2021-08-06] MEDS: LABETALOL HCL 200 MG TAB PO SCH ×2 (11:00→21:13)
[2021-08-06] MEDS: ENOXAPARIN SOD 40 MG/0.4 ML SYRINGE SC SCH (11:01)
[2021-08-06 12:09] LABS: Basophils # (auto) 0.2 10 ^3/uL (0-0.2); Basophils % (auto) 1.7 % (0.0-2.0); Eosinophils # (auto) 0 10 ^3/uL (0-0.8); Eosinophils % (auto) 0.4 % (0.0-7.0); Hematocrit 48.6 % (36.0-46.0); Lymphocytes # (auto) 3.2 10 ^3/uL (0.4-5.4); Lymphocytes % (auto) 34.7 % (10.0-50.0); Mean Corpuscular Hemoglobin 30.9 pg (28.0-32.0); Mean Corpuscular Volume 93.6 fL (80.0-100.0); Monocytes # (auto) 0.6 10 ^3/uL (0-1.3); Monocytes % (auto) 6.3 % (0.0-12.0); Neutrophils # (auto) 5.3 10 ^3/uL (1.6-8.6); Neutrophils % (auto) 56.9 % (37.0-80.0); Nucleated Red Blood Cells % 0.1 %; Red Cell Distribution Width 15.3 % (11.8-14.3); White Blood Cell 9.3 10^3/uL (4.4-10.8)
[2021-08-06 12:29] LABS: Calcium 10.5 mg/dL (8.5-10.1); Potassium 4.1 mmol/L (3.5-5.1)
[2021-08-06 12:33] LABS: BUN/Creatinine Ratio 23.1
[2021-08-06 13:00] VITALS: BP 141/78
[2021-08-06 17:00] VITALS: BP 121/52
[2021-08-06] MEDS: cefTRIAXone 1GM/50ML D5W 50 ML IV SCH (18:05)
[2021-08-06] MEDS: TEMAZEPAM 15 MG CAP PO PRN (21:14)
[2021-08-06] MEDS: HYDROcodone-ACET 5/325MG TAB PO PRN (21:14)
[2021-08-06 22:00] VITALS: BP 161/89
[2021-08-07] VITALS (7 sets, daily range): BP systolic 103–150; BP diastolic 77–86
[2021-08-07] MEDS: MORPHINE SULFATE INJ 2 MG/ml SYRG IV PRN ×2 (00:44→12:55)
[2021-08-07] MEDS: HYDROcodone-ACET 5/325MG TAB PO PRN ×3 (05:08→21:44)
[2021-08-07] MEDS: ALBUTEROL SULF 2.5 MG/0.5ML(0.5%) NEB SOLN NEB PRN (06:47)
[2021-08-07] MEDS: IPRATROPIUM BROM 0.5 MG/2.5ML INH SOL NEB PRN (06:47)
[2021-08-07] MEDS: cefTRIAXone 1GM/50ML D5W 50 ML IV SCH (08:42)
[2021-08-07] MEDS: ASCORBIC ACID 500 MG TAB PO SCH ×2 (10:25→21:43)
[2021-08-07] MEDS: MULTIPLE VITAMIN TAB PO SCH (10:25)
[2021-08-07] MEDS: ZINC SULFATE 220mg CAP or TAB PO SCH (10:25)
[2021-08-07] MEDS: amLODIPine BESYLATE 5 MG TAB PO SCH (10:26)
[2021-08-07] MEDS: LABETALOL HCL 200 MG TAB PO SCH ×2 (10:27→21:43)
[2021-08-07] MEDS: ENOXAPARIN SOD 40 MG/0.4 ML SYRINGE SC SCH (10:27)
[2021-08-07] MEDS: PANTOPRAZOLE 40 MG TAB PO SCH (10:30)
[2021-08-07] MEDS: TEMAZEPAM 15 MG CAP PO PRN (21:44)
[2021-08-08 05:00] VITALS: BP 154/100
[2021-08-08] MEDS: hydrALAZINE HCL 20 MG/ML VL IV PRN (06:07)
[2021-08-08 08:30] VITALS: BP 149/65
[2021-08-08 09:00] VITALS: BP 149/65
[2021-08-08] MEDS: cefTRIAXone 1GM/50ML D5W 50 ML IV SCH (09:09)
[2021-08-08] MEDS: ACETAMINOPHEN 325 MG TAB PO PRN (09:14)
[2021-08-08] MEDS: MORPHINE SULFATE INJ 2 MG/ml SYRG IV PRN ×2 (09:15→14:32)
[2021-08-08] MEDS: ZINC SULFATE 220mg CAP or TAB PO SCH (09:33)
[2021-08-08] MEDS: LABETALOL HCL 200 MG TAB PO SCH ×2 (09:33→21:53)
[2021-08-08] MEDS: ENOXAPARIN SOD 40 MG/0.4 ML SYRINGE SC SCH (09:34)
[2021-08-08] MEDS: ASCORBIC ACID 500 MG TAB PO SCH ×2 (09:34→21:53)
[2021-08-08] MEDS: amLODIPine BESYLATE 5 MG TAB PO SCH (09:34)
[2021-08-08] MEDS: MULTIPLE VITAMIN TAB PO SCH (09:50)
[2021-08-08] MEDS: PANTOPRAZOLE 40 MG TAB PO SCH (09:51)
[2021-08-08 13:00] VITALS: BP 134/87
[2021-08-08 17:14] VITALS: BP 131/72
[2021-08-08] MEDS ORDERED: CALCIUM CARB 500 MG CHEW TAB PO PRN (17:45)
[2021-08-08] MEDS: HYDROcodone-ACET 5/325MG TAB PO PRN (20:01)
[2021-08-08] MEDS: hydrALAZINE HCL 25 MG TAB PO SCH (21:52)
[2021-08-08] MEDS: TEMAZEPAM 15 MG CAP PO PRN (21:53)
[2021-08-08 22:00] VITALS: BP 150/93
[2021-08-09] MEDS: HYDROcodone-ACET 5/325MG TAB PO PRN (03:48)
[2021-08-09 05:00] VITALS: BP 149/82
[2021-08-09 08:50] VITALS: BP_SYST 106; BP_SYST 168; BP_DIAS 107; BP_DIAS 59
[2021-08-09] MEDS: ZINC SULFATE 220mg CAP or TAB PO SCH (09:03)
[2021-08-09] MEDS: cefTRIAXone 1GM/50ML D5W 50 ML IV SCH (09:03)
[2021-08-09] MEDS: MULTIPLE VITAMIN TAB PO SCH (09:05)
[2021-08-09] MEDS: hydrALAZINE HCL 25 MG TAB PO SCH (09:05)
[2021-08-09] MEDS: LABETALOL HCL 200 MG TAB PO SCH (09:06)
[2021-08-09] MEDS: amLODIPine BESYLATE 5 MG TAB PO SCH (09:07)
[2021-08-09] MEDS: PANTOPRAZOLE 40 MG TAB PO SCH (09:08)
[2021-08-09] MEDS: ASCORBIC ACID 500 MG TAB PO SCH (09:08)
[2021-08-09] MEDS: ENOXAPARIN SOD 40 MG/0.4 ML SYRINGE SC SCH (09:08)
[2021-08-09] MEDS: ALBUTEROL SULF 2.5 MG/0.5ML(0.5%) NEB SOLN NEB PRN (11:22)
[2021-08-09] MEDS: IPRATROPIUM BROM 0.5 MG/2.5ML INH SOL NEB PRN (11:22)
[2021-08-09 12:58] VITALS: BP 134/88
[2021-08-09] MEDS ORDERED: CEPH-509 PO (16:52)
[2021-08-09 17:03] VITALS: BP 145/83
[2021-08-09 17:55] VITALS: BP 145/83
== END 2021-08-09 18:43 | disposition home health service (06) | DRG 198 ==
LOC: EDBD 19:55 → ER 19:55 → TELE 08-04 00:47 → TELE-WESTW 08-04 08:46
PROVIDERS: ADMIT Internal Medicine; ATTEND Internal Medicine
DX: I20.0 Unstable angina (principal); I11.0 Hypertensive heart disease with heart failure; I50.22 Chronic systolic (congestive) heart failure; E66.01 Morbid (severe) obesity due to excess calories; I16.1 Hypertensive emergency; J44.9 Chronic obstructive pulmonary disease, unspecified; Z20.822 Contact with and (suspected) exposure to COVID-19; F12.90 Cannabis use, unspecified, uncomplicated; N39.0 Urinary tract infection, site not specified; M54.12 Radiculopathy, cervical region; Z74.01 Bed confinement status; Z79.899 Other long term (current) drug therapy; Z82.3 Family history of stroke; Z82.49 Family history of ischemic heart disease and other diseases of the circulatory system; Z82.5 Family history of asthma and other chronic lower respiratory diseases; Z68.34 Body mass index [BMI] 34.0-34.9, adult
CPT/HCPCS: 36415; 71045; 80048; 80053; 81001; 83735; 83880; 84484; 85025; 85379; 87086; 87088; 93005; 93306; 94640; 97163; G0378; J0696; J2405